=== PATIENT | female | born 1945 | race Caucasian/White ===

== ENCOUNTER 2018-09-18 22:03 | Emergency (ER) | payer MEDICARE, OTHER, SELFPAY ==
[2018-09-18 22:03] VITALS: BP 212/137; PULSE 86; RESP 20; TEMP 36.3; O2SAT 97; BMI 33.0
--- NOTE | 2018-09-18 22:41 | ED.DCSUM_ITS ---
- ER Visit Summary Date of Service: 09/18/18 Chief Complaint: [] Right lower abdominal pain History of Present Illness: The patient is a 73 F with right lower abdominal pain for the last 3 weeks on and off. Is been worse over the last 3 days and constant today. She describes an aching stabbing pain in her right lower abdomen. She still has her appendix but it does not hurt to push on this area. Denies nausea vomiting. She is having normal bowel movements. No home treatment. She had a remote kidney stone 40 years ago. Denies any other medical problems Physical Examination: [] Vital signs reviewed General: Well-nourished well-developed Head: Normocephalic atraumatic Eyes: Pupils equal round and reactive to light extraocular movements intact ENT: TMs clear no hemotympanum no trauma Neck: Nontender full range of motion Cardiovascular: Regular rate rhythm no murmurs normal S1-S2 Respiratory: No distress clear to auscultation bilaterally chest nontender Abdomen: Soft nontender nondistended normal bowel sounds no masses Back: Nontender no CVA tenderness Extremities: Nontender active range of motion ?4 extremities no trauma Skin: Normal color no trauma Neuro alert oriented cranial nerves II through XII intact normal strength sensation reflexes Test Results: [] Emergency Department Course and Treatment: [] Given IV fluids, morphine. Lab work and CT abdomen pelvis obtained. Lab work shows a chloride of 109. Normal liver function test CBC and lipase. Urinalysis shows no evidence of infection with 0 bacteria. Troponin negative. EKG shows sinus at 69. There was some very slight ST elevation in V2. T wave inversion inferiorly 3. That is unchanged from prior. CT abdomen pelvis shows a 2.8 x 2.3 cm right ovarian cyst. Ultrasound was done in this region to rule out torsion. There is no t orsion. There is a fibroid noted as well as a right simple cyst. Patient was given IV fluids and morphine. She did get nauseated after the morphine and was received a dose of Zofran which helped. At this time I think she is dealing with pain from this cyst. She will be referred to [facility]. She will use Tylenol as an outpatient. Blood pressures were elevated in the department likely secondary to her pain. Her most recent is 177/101. She will follow-up with her family doctor to have her blood pressures rechecked as an outpatient. Treatment Plan: [] Disposition: [] Impression: [] Right lower quadrant pain secondary to ovarian cyst Elevated blood pressure This note was generated with [employer] dictation software. It may contain incorrect words, spelling, and punctuation that were not noted in review of the chart prior to signing ED Disposition - Plan for ED Patient: Chief Complaint: Abd Pain Referrals: Jeny Irizarry MD [Primary Care Provider] -
[2018-09-18 22:49] LABS: Absolute Lymphocyte Count 1.22 X10^3/ul (0.83-4.51); Absolute Neutrophil Count 3.2 X10^3/uL (2.0-7.7); Basophil# 0.03 X10^3/uL; Basophil% 0.6 % (0-1); Eosinophil# 0.16 X10^3/uL; Eosinophils% 3.1 % (0-5); Hematocrit 43.6 % (37-47); Hemoglobin 14.2 g/dl (12.0-15.0); Lymphocyte # 1.22 X10^3/ul (4.0); Lymphocyte % 23.8 % (19-41); Mean Corp Hgb Conc 32.6 g/gl (32-36); Mean Corpuscular Volume 92.2 fL (81-99); Mean Platelet Vol. 9.2 fl (6.2-12.0); Monocyte# 0.52 X10^3/uL; Monocyte% 10.1 % (0-10); Neutrophil # 3.18 X10^3/uL (2.7-7.7); Platelet Count 273 K/mm3 (150-450); RBC Distribution Width CV 13.1 % (11.6-14.6); RBC Distribution Width SD 43.7 fl (35.1-43.9); Red Blood Count 4.73 M/mm3 (4.2-5.4); White Blood Count 5.1 K/mm3 (4.4-11.0)
[2018-09-18 22:50] LABS: POSITIVE COUNT NO; POSITIVE DIFFERENTIAL NO; POSITIVE MORPHOLOGY NO
--- NOTE | 2018-09-18 23:00 | CT_ITS ---
STUDY: CT ABDOMEN AND PELVIS WITHOUT CONTRAST REASON FOR EXAM: Female, 73 years old. Right-sided abdominal pain RADIATION DOSAGE (If Supplied By Facility): CTDIvol = ( 14.40 ) mGy, DLP = ( 644.00 ) mGycm TECHNIQUE: Transaxial images were obtained from the dome of the diaphragm to the symphysis pubis without oral contrast, and without intravenous contrast. Sagittal and coronal images were reconstructed. Individualized dose optimization techniques were used for this CT. COMPARISON: None. FINDINGS: The visualized lung bases are unremarkable. The visualized portions of the heart are within normal limits. Small hiatal hernia. Normal liver. There are surgical clips in the gallbladder fossa consistent with a prior cholecystectomy. There are multiple benign calcified granulomata of the spleen. Normal pancreas. Normal bilateral adrenal glands. Normal right kidney. Normal left kidney. Normal visualized stomach. 3.1 cm duodenal diverticulum. There are multiple colonic diverticula consistent with diverticulosis. The appendix is visualized and appears normal. Normal abdominal aorta. Normal inferior vena cava. Normal retroperitoneum. Normal urinary bladder. 2.8 x 2.3 cm right ovary cyst. Normal abdominal wall. Remote deformity of the right inferior pubic ramus. CT/Abdomen/Pelvis without Cont IMPRESSION: No evidence of acute intestinal pathology or acute obstructive uropathy. 2.8 x 2.3 cm right ovary cyst. Duodenal diverticulum. Small hiatal hernia. Electronically Signed: Delio Tirado MD at 23:15 EST Tel , Service support ,
[2018-09-18 23:08] LABS: AST(SGOT) 16 U/L (15-37); Alanine Aminotransfer ALT/SGPT 17 U/L (13-56); Albumin, Serum 3.6 g/dL (3.2-5.0); Alkaline Phosphatase 91 U/L (45-117); Anion Gap 10 (5-15); BUN 12 mg/dL (7-18); BUN/Creat Ratio 12.4 RATIO (10-20); Bilirubin, Direct 0.11 mg/dL (0.00-0.30); Calcium,Total 8.6 mg/dL (8.5-10.1); Chloride 109 mmol/L (98-107); Creatinine, Serum 0.97 mg/dL (0.55-1.02); EST Glomerular Filtration Rate 60 mL/min (>60); Est Glom Filt Rate - Afr Amer 72 mL/min (>60); Estimated Creatinine Clearance 39.56 ml/min; Globulin 3.7 g/dL (2.2-4.2); Glucose 96 mg/dL (74-106); Lipase 100 U/L (73-393); Protein, Total 7.3 g/dL (6.4-8.2); Sodium Level 143 mmol/L (136-145)
[2018-09-18] MEDS: 0.9% Normal Saline 1,000 ML 1000 ML IV (23:20)
[2018-09-18] MEDS: Morphine 4 MG/ML Syringe IV (23:20)
[2018-09-18 23:24] VITALS: BP 237/117; PULSE 72; RESP 16
[2018-09-18 23:32] LABS: Bacteria 0 SEEN /hpf (None Seen); Mucous, Urine 0 SEEN /hpf (<or=2+)
[2018-09-18 23:37] LABS: Color, Urine Yellow (Yellow); Glucose, Dipstick Normal (Normal); Ketone-Dipstick 5 mg/dl (Negative); Leukocyte Esterase-Dipstick 500 /ul (Negative); Nitrite-Dipstick Negative (Negative); Occult Blood-Urine 10 /ul (Negative); Protein-Dipstick Negative (Negative); Specific Gravity, Urine 1.015 (1.002-1.030); Urine Bilirubin Dipstick Negative (Negative); Urine Clarity Sl. Cloudy (Clear); Urine Urobilinogen Normal (Normal); Urine pH 6.5 (5.0 - 8.0)
[2018-09-18] MEDS: Morphine 2 MG/ML Syringe IV (23:53)
[2018-09-18 23:55] VITALS: BP 200/106; PULSE 67; RESP 16
[2018-09-19] LABS: Amorphous Sediment 1+ URATE; Red Blood Cells-Urine 0-5 SEEN /hpf (0-5); Squamous Epithelial Cells - UA 0-5 SEEN /hpf (5-10); White Blood Cells 25-50 SEEN /hpf (0-5)
--- NOTE | 2018-09-19 00:21 | US_ITS ---
STUDY: ULTRASOUND TRANSVAGINAL CLINICAL: Female, 73 years old. Right pelvic pain, evaluate for torsion TECHNIQUE: Transvaginal COMPARISON: CT 09/18/2018 FINDINGS: The uterus is normal in size measuring 6.3 x 3.7 x 3.1 cm. Endometrial stripe is 9 mm thick and is hyperechoic. Posterior myometrial fibroid measuring 16 x 15 x 13 mm. Nabothian cyst in the cervix. Left ovary is not seen. Right ovary measures 3.8 x 2.4 x 2.1 cm. It contains a 3.6 x 2.4 x 2.1 cm simple cyst. Normal right ovary vascularity. No free pelvic fluid. US/Transvaginal Non- IMPRESSION: No evidence of right ovary torsion. Right ovary cyst measuring up to 3.6 centimeters. Left ovary is not seen. Posterior uterine fibroid measuring up to 16 mm. Electronically Signed: Delio Tirado MD at 2:53 EST Tel , Service support ,
[2018-09-19 00:31] VITALS: BP 177/101; PULSE 78; RESP 14
--- NOTE | 2018-09-19 00:49 | EKG12_ITS ---
Test Reason : CHEST PRESSURE Blood Pressure : / mmHG Vent. Rate : 069 BPM Atrial Rate : 069 BPM P-R Int : 162 ms QRS Dur : 076 ms QT Int : 414 ms P-R-T Axes : 059 -11 -04 degrees QTc Int : 443 ms Normal sinus rhythm Septal infarct , age undetermined Inferior infarct , age undetermined Abnormal ECG Confirmed by SAMSON WOODRUFF, DAWN ([id number]), subeditor MARY ANNE DE JESUS ([id number]) on 09/23/2018 4:57:59 PM Referred By: PASTOR Confirmed By:DAWN DAVIES MD
[2018-09-19] MEDS: Ondansetron 4 MG/2 ML Vial IV (00:55)
--- NOTE | 2018-09-19 03:05 | ED.DEP ---
ED Disposition - Plan for ED Patient: Disposition: Home or Assisted Living Chief Complaint: Abd Pain Instructions: ED Cyst Ovarian, Controlling High Blood Pressure Referrals: Jeny Irizarry MD [Primary Care Provider] - More Ceballos [STAFF PHYSICIAN] -
[2018-09-19 03:20] VITALS: BP 200/120; PULSE 93; RESP 18; O2SAT 96
== END 2018-09-19 03:34 | disposition home or self-care (01) ==
PROVIDERS: Emergency Provider Emergency Medicine; Family Provider Family Medicine; PCP Family Medicine
DX: N83.201 Unspecified ovarian cyst, right side (principal); R10.31 Right lower quadrant pain; R03.0 Elevated blood-pressure reading, without diagnosis of hypertension; D25.9 Leiomyoma of uterus, unspecified; Z87.442 Personal history of urinary calculi; Z90.49 Acquired absence of other specified parts of digestive tract
CPT/HCPCS: 74176; 76830; 80048; 80076; 81001; 83690; 84484; 85025; 93005; 93976; 96374; 96375; 99284; J7030; A4216; J2405

== ENCOUNTER 2018-10-02 05:44 | Day surgery (SDC) | payer MEDICARE, OTHER, SELFPAY ==
[2018-09-23 08:33] VITALS: BMI 33.0
[2018-09-29 11:25] VITALS: BMI 33.0
--- NOTE | 2018-10-02 05:38 | PCM.HPOB.BLA ---
- Problem List (1) Complex ovarian cyst Status: Acute (2) Endometrial thickening on ultrasound Status: Acute History and Physical Date of Admission: 10/02/18 Vital Signs 09/29/18 Body Mass Index (BMI) 33.0 09/29/18 Blood Pressure 122/86 H Intake Visit Reasons: Pre-op/SOAP Chief Complaint: pre-op appt Payroll Tax Specialist Required: No Is patient in pain?: No Allergies No Known Allergies Allergy (Verified 09/29/18 10:32) Medications cyclobenzaprine 5 mg tablet 5 mg PO TID PRN #30 tab 09/23/18 [Rx Confirmed 09/29/18] Gabapentin [Neurontin] 100 mg PO TIDCM 09/26/18 [History Confirmed 09/29/18] Oxycodone HCl 5 mg PO 4X/DAY 09/26/18 [History Confirmed 09/29/18] Valacyclovir HCl [Valtrex] 1,000 mg PO TID 09/26/18 [History Confirmed 09/29/18] Is last menstrual period known: No Post menopausal: Yes Patient : No : No PFSH Surgical History Cholecystectomy planned (Acute) S/P thyroid biopsy (Acute) Family History Mother Diabetes Brother Diabetes Heart disease Social History number of children: 3 current occupational status: retired current occupation: Secretarial Smoking Status: Never smoker alcohol intake: current alcohol intake frequency: 0-2 drinks per day Alcohol type: wine substance use type: does not use seatbelt use: always do you feel safe at home: Yes additional social history: Angelo Padilla HPI Pre-op/SOAP: Details: GRICELDA MORSE is a 73 year old who presents for preoperative appointment. she has an ovarian cyst and is having pelvic pain, and a thickened lining. she is going to have a d and c hysteroscopy and laparoscopic BSO. Pregancy History 3 Elective abortions Hx Para 3 Spontaneous abortions Hx # Term Pregnancies 3 Ectopic pregnancies Hx # Pregnancies Multiple births # of living children 3 Past Pregnancies Del. Date Name GA/Weeks Outcome Route Bth Weight Infant Gen Labor Lgth Anesthesia Del Locatn Provider FOB Unknown Sarah 1964 Unknown Adam 1966 Unknown Fidelina 1972 ROS Const Constitutional: Denies poor appetite, headache(s), fever(s), increased appetite, weight gain, weight loss or fatigue Cardio Card: Denies chest pain Resp Resp: Denies dyspnea or cough GI GI: Reports as per HPI; denies vomiting, nausea, abdominal pain or constipation : Reports as per HPI; denies urinary urgency, vaginal discharge, urinary frequency, vaginal itching, vaginal odor, vaginal dryness, urinary incontinence, urinary hesitancy, difficulty urinating or painful urination Exam Const General: cooperative, healthy appearing, comfortable, no acute distress, well developed Nutritional Appearance: average body habitus Orientation: alert [facility] Head: normal to inspection, normocephalic Neck Neck: normal visual inspection, trachea midline Thyroid: thyroid normal Resp Effort & Inspection: normal respiratory effort GI Inspection: normal to inspection, non-distended Palpation: soft, no hepatosplenomegaly Skin General: no rashes or lesions noted Assessment & Plan Problems 1. Complex ovarian cyst N83.299 2. Endometrial thickening on ultrasound R93.89 Plan discussed surgical risks including risks of anesthesia, infection, bleeding, injury to bowel, bladder or blood vessels, and patient wishes to proceed with surgery. Coding Level of Care Code No Charge Diagnoses Complex ovarian cyst N83.299 Endometrial thickening on ultrasound R93.89 UPDATE- I have seen the patient and performed any clinically relevant updates to the history and physical exam. Charline Maynard MD
[2018-10-02 06:27] LABS: Hematocrit 41.3 % (37-47); Hemoglobin 13.4 g/dl (12.0-15.0); Mean Corp Hgb Conc 32.4 g/gl (32-36); Mean Corpuscular Hgb 29.5 pg (27.0-32.0); Mean Corpuscular Volume 90.8 fL (81-99); Mean Platelet Vol. 9.6 fl (6.2-12.0); Platelet Count 250 K/mm3 (150-450); RBC Distribution Width CV 12.9 % (11.6-14.6); RBC Distribution Width SD 42.3 fl (35.1-43.9); Red Blood Count 4.55 M/mm3 (4.2-5.4); White Blood Count 4.2 K/mm3 (4.4-11.0)
[2018-10-02 06:29] VITALS: BP 174/96; PULSE 88; RESP 16; TEMP 37.3; O2SAT 95; BMI 30.7
[2018-10-02 06:29] LABS: Scan Indicated on CBC? Y/N NO
[2018-10-02 07:22] LABS: Thyroid Stim Hormone (TSH) 2.32 uIU/mL (0.358-3.74)
--- NOTE | 2018-10-02 07:30 | FLU_PTH ---
PATIENT: GRICELDA SANCHEZ LOC: [facility] [place] U#:[id number] AGE/SX: 73/F ROOM: RE10/02/[address]: Dr. Charline Maynard MD : 1945 BED: DIS: 10/02/2018 SPEC #: [id number] RECD: 10/02/18 10:16 STATUS: ANY ROSA #: [id number] KIRSTEN: 10/02/18 07:[address]: Charline Maynard DEPT: CYTOLOGY RECD BY: Kushal Bennett ENTERED: 10/02/18 11:10 SP TYPE: Fluid OTHR DR: Dr. Jeny Irizarry MD Tissues: Pelvis, NOS Procedures: Pap Stain (control) Special Stain Group II Surgery Specimen Level IV Cell Block Cytospin Fluid HEADER OPERATION: Laparoscopic salpingo-oophorectomy, lysis of adhesions PRE-OP DIAGNOSIS: Complex ovarian cyst; endometrial thickening on ultrasound TISSUE SUBMITTED: Pelvic washings for cytology DIAGNOSIS CYTOLOGY Pelvic washings for cytology (cytospin and cell block): Negative for malignant cells. AM:thony 10/03/18 COMMENT Please make reference to corresponding surgical case ([id number]). CYTOLOGY STUDY Slides are reviewed. CYTOLOGY GROSS Received is 25 ml of clear colorless fluid labeled with the patient's name and and designated per the requisition as pelvic washings. Submitted for cytology preparation including cell block. / 10/02/18 TC:5 CPT: 83580, 44533
--- NOTE | 2018-10-02 07:30 | FALS_PTH ---
PATIENT: GRICELDA SANCHEZ LOC: [facility] [place] U#:[id number] AGE/SX: 73/F ROOM: RE10/02/[address]: Dr. Charline Maynard MD : 1945 BED: DIS: 10/02/2018 SPEC #: [id number] RECD: 10/02/18 10:16 STATUS: ANY ROSA #: [id number] KIRSTEN: 10/02/18 07:[address]: Charline Maynard DEPT: SURGICAL PATHOLOGY RECD BY: Kushal Bennett ENTERED: 10/02/18 11:12 SP TYPE: FALL TUBES OTHR DR: Dr. Jeny Irizarry MD Tissues: A - Fallopian tube B - Endometrium, NOS Procedures: Surgery Specimen Level IV HEADER OPERATION: Laparoscopic salpingo-oophorectomy, lysis of adhesions PRE-OP DIAGNOSIS: Complex ovarian cyst; endometrial thickening on ultrasound TISSUE SUBMITTED: A - Bilateral fallopian tubes and ovaries, B - Endometrial curettings MICROSCOPIC DIAGNOSIS A. Bilateral fallopian tubes and ovaries, salpingo-oophorectomy: Right and left ovaries with corpora albicantia and benign inclusion cysts. One fallopian tube with no significant pathologic change, complete cross-section. The other fallopian tube with benign paratubal cyst. B. Endometrium, curettings: Rare strips of benign squamous mucosa and mucous. See comment. AM:thony 10/03/18 COMMENT B. Glandular epithelium is not represented in the biopsy. Clinical correlation is suggested. MICROSCOPIC DESCRIPTION Slides are reviewed. GROSS DESCRIPTION A - Received is one container labeled with the patient's name and designated bilateral fallopian tubes and ovaries. The specimen consists of a pink-maldonado ovary measuring 3 x 1.5 x 1 cm. Adjacent to this is a portion of fallopian tube measuring 2.5 x 0.5 cm. No distinct tubo-ovarian adhesions are identified. Serial sections of the ovary do not reveal mass lesions. The fallopian tube has a normal fimbrial end. No mass lesions are identified. [employer] Teacher sections of this fallopian tube and ovary are submitted in cassette 1. The other ovary is similar in appearance to this ovary and measures 2.5 x 2 x 1.5 cm. Serial sections of the ovary do not reveal mass lesions. The fallopian tube measures 3 cm in length and appearance to have cystic dilatation. This cystic lesion measures 3.5 x 3 cm. The cyst contains clear fluid. [employer] Teacher sections are submitted as follows: 1 - one ovary and fallopian tube, 2 & 3 - the other ovary with cystically dilated fallopian tube. B - Received in fixative is one container labeled with the patient's name and designated endometrial curettings. The specimen consists of light maldonado mucoid material aggregating to 1 x 1 x <0.1 cm. The specimen is totally submitted in one cassette. It is doubtful if tissue will survive processing. / AM:thony 10/02/18 TC:4 CPT: 83823 x3
--- NOTE | 2018-10-02 07:40 | OP.PCM_ITS ---
Problem List (1) Complex ovarian cyst Status: Acute (2) Endometrial thickening on ultrasound Status: Acute Report of Operation Date of Procedure: 10/02/18 Pre-Operative Diagnosis: complex ovarian cyst, pain, thickened endometrium Post-Operative Diagnosis: Same plus severe omental to anterior abdominal wall and omental to anterior abdominal wall scar tissue Surgery/Procedure Performed:: laparoscopic bso d and c hysteroscopy lysis of adhesion cytologic washings Description of Surgical Findings:: Extensive small bowel to anterior abdominal wall adhesion in the right side of the abdomen particularly right mid and right upper quadrant. Left sigmoid to the pelvic wall adhesions. Complex cystic right ovary insurance salesman: Anais Hu Type of Anesthesia:: General Special Medications: dary Specimen's removed: emc bilateral tubes and ovaries Drains: singh Estimated Blood Loss (mL): 25 Fluids Replaced: crystalloid Description of Procedure: Patient was taken to the operating room and placed under general anesthesia. Patient was prepped and draped in normal sterile fashion in the dorsal lithotomy position. Uterine manipulator was placed inside the uterus after sounding to 7 cm and attention paid to the abdominal wall. This attempted to insert a varies needle through a 12 mm umbilical port incision and I was unable to get the c orrect space and therefore went in directly via the Carrizales technique. A 12 mm port was placed directly after entering the abdomen and abdomen is well visualized. Severe right upper quadrant and right mid abdomen adhesions were seen omental to anterior abdominal wall and small bowel to anterior abdominal wall adhesions due to her previous cholecystectomy. There is also some left sigmoid to left pelvic sidewall adhesions. Using the [place] LigaSure device the bilateral salpingo-oophorectomy was performed after collecting cytologic washings. The left ovary was noted to be within normal limits but the right ovary was noted to be complex cystic and mildly enlarged. Both ovaries were removed intact placed inside a bag and removed through the umbilical port incision. Lysis of adhesions was then performed which took approximately 30-40 minutes. Using the [place] and laparoscopic scissors the scar tissue was dissected carefully between the small bowel and the anterior abdominal wall. There is no to be thinning of the posterior rectus sheath in the right portion of the abdomen. The liver appeared within normal limits. After dissecting down there was still good integrity to the bowel and surrounding tissues. Dary was placed over the areas and excellent hemostasis was noted. The umbilical port was closed directly using the Nabil Cheema using a 0 Vicryl suture. All port sites were removed from the abdomen and the skin incisions were posed with 3-0 Monocryl. Uterine manipulator was then removed and the cervix dilated to allow passage of a 5 mm hysteroscope. Lining was well visualized and noted be significantly atrophic with no normality seen. Curettage was performed with a very scant amount of tissue was removed due to the severe atrophy of the uterine lining. All instruments removed from the abdomen and vagina and patient was awoken taken recovery in stable condition. Grafts/Implants Used: none - Complications none - Admit VTE Documentation VTE Present on Admission: No
--- NOTE | 2018-10-02 07:42 | DCINST_ITS ---
Discharge Diet: No Restrictions - Increase fluid intake for the next 48 hours. Discharge Activity: Return to Normal Activity, May Drive - when you are no longer taking narcotic pain medications., May Shower, May Take a Tub Bath - in 7 days Additional Activity Instructions:: Ambulate often the next week after surgery. Nothing in the vagina for 5 days. Call your doctor if your incision/area has: Continuous Slow Oozing, Sudden Increased Bleeding, Increased Pain/ Swelling, Increased Redness, Foul Smelling Discharge Call your doctor if you observe: Fever of 101 or Higher Allergies/Adverse Reactions: Allergies No Known Allergies Allergy (Verified 09/29/18 10:32) Medications to take at Discharge cyclobenzaprine 5 mg tablet 5 mg PO TID PRN #30 tab 09/23/18 Gabapentin [Neurontin] 100 mg PO TIDCM 09/26/18 Oxycodone HCl 5 mg PO 4X/DAY 09/26/18 Valacyclovir HCl [Valtrex] 1,000 mg PO TID 09/26/18 Naproxen [Naprosyn] 250 - 500 mg PO Q8H PRN PRN #30 tablet 10/02/18 The following prescriptions were given: Naproxen [Naprosyn] 250 - 500 mg PO Q8H PRN PRN #30 tablet PRN Reason: MILD PAIN Orders to be completed after discharge: Thyroid Stim Hormone (TSH) Time Frame: 09/26/18, Location: Laboratory Primary Care Physician: Jeny Irizarry MD [Primary Care Provider] - Test Results: Test results from this visit will be discussed in further detail at your follow- up appointment, if applicable. Please Follow Up With: Charline Maynard MD - [phone]
[2018-10-02] MEDS: Bupivacaine 0.25% 30 ML Vial (08:08)
[2018-10-02] MEDS: Lubricating Jelly 60 GM Tube 30 GM TOPICAL (08:50)
[2018-10-02 09:14] VITALS: BP 173/99; BP 174/96; PULSE 104; RESP 16; TEMP 36.2; O2SAT 92
[2018-10-02 09:15] VITALS: BP 162/87; BP 174/96; PULSE 105; RESP 16; O2SAT 92
[2018-10-02 09:29] VITALS: BP 141/84; BP 174/96; PULSE 81; RESP 16; O2SAT 92
[2018-10-02 09:38] VITALS: BP 144/89; BP 174/96; PULSE 76; RESP 16; TEMP 36.6; O2SAT 92
[2018-10-02 12:05] VITALS: BP 157/95; BP 174/96; PULSE 84; RESP 16; TEMP 36.2; O2SAT 98
== END 2018-10-02 12:06 | disposition home or self-care (01) ==
LOC: SDC 05:45 → AC 05:45
PROVIDERS: Anesthesiology; Family Provider Family Medicine; PCP Family Medicine; Referring Provider Obstetrics & Gynecology; Visit Provider Obstetrics & Gynecology
PROC: (CPT 58558; principal; 2018-10-02 07:15)
PROC: 0UB98ZZ Excision of Uterus, Via Natural or Artificial Opening Endoscopic (ICD-10-PCS; CPT 58558; 2018-10-02 07:15)
DX: N83.292 Other ovarian cyst, left side (principal); N83.291 Other ovarian cyst, right side; N83.8 Other noninflammatory disorders of ovary, fallopian tube and broad ligament; R93.89 Abnormal findings on diagnostic imaging of other specified body structures; K66.0 Peritoneal adhesions (postprocedural) (postinfection); K21.9 Gastro-esophageal reflux disease without esophagitis; I10 Essential (primary) hypertension; Z79.899 Other long term (current) drug therapy
CPT/HCPCS: 00840; 58558; 58661; 36415; 84443; 85027; 86850; 86900; 88108; 88302; 88305; 88313; J7120; J2405

== ENCOUNTER → 2018-10-13 11:16 | Outpatient (CLI) | payer MEDICARE, OTHER, SELFPAY ==
[2018-10-02 06:29] VITALS: BMI 30.7
--- NOTE | 2018-10-13 11:22 | RAD_ITS ---
STUDY: X-RAY - RIGHT TIBIA AND FIBULA REASON FOR EXAM: Fall. TECHNIQUE: 2 view(s) of the tibia and fibula were obtained. COMPARISON: None. FINDINGS: Normal visualized tibia. There is very mild displaced oblique fracture of the distal fibular diaphysis. There is soft tissue swelling at the lateral aspect of the ankle. RAD/Tibia & Fibula 2 Views IMPRESSION: Distal fibular diaphyseal fracture. Electronically Signed: Jose Morton MD at 11:58 EST Tel , Service support ,
--- NOTE | 2018-10-13 11:22 | RAD_ITS ---
STUDY: X-RAY - RIGHT ANKLE REASON FOR EXAM: Fall. TECHNIQUE: 3 view(s) of the ankle. COMPARISON: None. FINDINGS: There is a very mildly displaced oblique fracture of the distal fibular diaphysis. Normal medial and lateral malleoli. Normal tibiotalar articulation and ankle mortise. Normal visualized talus and calcaneus. The visualized subtalar, talonavicular, calcaneocuboid and tarsal articulations are normal. There is lateral soft tissue swelling. RAD/Ankle min 3 Views IMPRESSION: Distal fibular fracture. Electronically Signed: Jose Morton MD at 11:59 EST Tel , Service support ,
== END ==
PROVIDERS: Family Provider Family Medicine; PCP Family Medicine; Referring Provider Nurse Practitioner Family; Visit Provider Nurse Practitioner Family
DX: S99.911A Unspecified injury of right ankle, initial encounter (principal)
CPT/HCPCS: 73590; 73610

== ENCOUNTER → 2018-10-14 11:57 | Outpatient (CLI) | payer MEDICARE, OTHER, SELFPAY ==
[2018-10-14 08:19] VITALS: BMI 30.7
--- NOTE | 2018-10-14 11:59 | RAD_ITS ---
STUDY: X-RAY - RIGHT ANKLE REASON FOR EXAM: Female, 73 years old. Injury. TECHNIQUE: 3 view(s) of the ankle. COMPARISON: None. FINDINGS: Distal fibular diaphyseal fracture, mild subluxation, cortical step-off approximately 5.4 mm, oblique orientation into the margin of the metaphysis. Prominent lateral ankle soft tissue swelling. Tibia intact. Normal tibiotalar articulation with normal dome of the talus. Proximal foot intact. RAD/Ankle min 3 Views IMPRESSION: Distal fibular fracture. Electronically Signed: Yeyo Ram MD at 12:16 EST Tel , Service support ,
== END ==
PROVIDERS: Family Provider Family Medicine; PCP Family Medicine; Referring Provider Orthopaedic Surgery; Visit Provider Orthopaedic Surgery
DX: S82.831A Other fracture of upper and lower end of right fibula, initial encounter for closed fracture (principal)
CPT/HCPCS: 73610

== ENCOUNTER → 2018-10-20 10:55 | Outpatient (CLI) | payer MEDICARE, OTHER, SELFPAY ==
[2018-10-16 09:22] VITALS: BMI 30.7
--- NOTE | 2018-10-20 11:19 | RAD_ITS ---
STUDY: X-RAY - RIGHT ANKLE REASON FOR EXAM: Female, 73 years old. Injury. TECHNIQUE: 3 view(s) of the ankle. COMPARISON: None. FINDINGS: Normal visualized distal tibia. There is a slightly displaced oblique fracture of the distal fibula just above the lateral malleolus. No angulation. Normal tibiotalar articulation and ankle mortise. Normal visualized talus and calcaneus. The visualized subtalar, talonavicular, calcaneocuboid and tarsal articulations are normal. The soft tissue structures are unremarkable. RAD/Ankle min 3 Views IMPRESSION: There is a slightly displaced oblique fracture of the distal fibula just above the lateral malleolus. No angulation. Electronically Signed: Doyle Khalil MD at 17:07 EST , Service support ,
== END ==
PROVIDERS: Family Provider Family Medicine; PCP Family Medicine; Referring Provider Orthopaedic Surgery; Visit Provider Orthopaedic Surgery
DX: S82.401A Unspecified fracture of shaft of right fibula, initial encounter for closed fracture (principal)
CPT/HCPCS: 73610

== ENCOUNTER 2018-10-21 05:48 | Day surgery (SDC) | payer MEDICARE, OTHER, SELFPAY ==
[2018-10-14 08:19] VITALS: BMI 30.7
[2018-10-16 09:22] VITALS: BMI 30.7
[2018-10-21 06:51] VITALS: BP 177/100; PULSE 84; RESP 16; TEMP 36.8; O2SAT 99; BMI 30.5
[2018-10-21] MEDS: Cefazolin 2 GM in 0.9% Normal Saline 100 ML IV (07:29)
--- NOTE | 2018-10-21 07:30 | RAD_ITS ---
STUDY: X-RAY - RIGHT ANKLE REASON FOR EXAM: Female, 73 years old. ORIF of the distal fibular fracture. TECHNIQUE: 2 intraoperative view(s) of the ankle. COMPARISON: Comparison is made with prior examination dated October 20, 2018. FINDINGS: The patient is status post open reduction and internal fixation of the distal fibular fracture. There is good alignment. Normal tibiotalar articulation and ankle mortise. Normal visualized talus and calcaneus. The visualized subtalar, talonavicular, calcaneocuboid and tarsal articulations are normal. Postoperative soft tissue changes. RAD/Ankle 2 Views IMPRESSION: Status post open reduction and dilatation of the distal fibular fracture. There is good alignment. Electronically Signed: Giovani King MD at 9:24 EST , Service support ,
[2018-10-21 09:17] VITALS: BP 144/86; BP 177/100; PULSE 73; RESP 18; TEMP 36.1; O2SAT 96
--- NOTE | 2018-10-21 09:25 | PCM.DC.ORTHO ---
Discharge Diet: No Restrictions May shower in (days): 2 - weeks Ice area for (Minutes): 15 Keep extremity elevated above heart level: Operative Extremity Additional Activity Instructions:: ice and elevate above heart strict x 1 week. may wiggle toes. no weight bearing. keep splint on clean and dry. Call your doctor if your incision/area has: Continuous Slow Oozing Call your doctor if you observe: Fever of 101 or Higher, Uncontrolled pain Allergies/Adverse Reactions: Allergies No Known Allergies Allergy (Verified 10/21/18 06:49) Medications to take at Discharge Acetaminophen [Tylenol Extra Strength] 1,000 mg PO BID 10/16/18 Acetaminophen/Diphenhydramine [Tylenol Pm Ex-Strength Caplet] 1 ea PO QHS 10/16/18 Hydrocodone Bitart/Apap 5-325 [[place] 5MG-325MG] 1 - 2 tablet PO Q4H PRN PRN 7 Days #60 tablet 10/21/18 The following prescriptions were given: Hydrocodone Bitart/Apap 5-325 [[place] 5MG-325MG] 1 - 2 tablet PO Q4H PRN PRN 7 Days #60 tablet PRN Reason: Pain Primary Care Physician: Jeny Irizarry MD [Primary Care Provider] - Test Results: Test results from this visit will be discussed in further detail at your follow-up appointment, if applicable. Please Follow Up With: Michael Pineda DO - 1 week
--- NOTE | 2018-10-21 09:28 | DCINST_ITS ---
Discharge Diet: No Restrictions May shower in (days): 2 - weeks Ice area for (Minutes): 15 Keep extremity elevated above heart level: Operative Extremity Additional Activity Instructions:: ice and elevate above heart strict x 1 week. may wiggle toes. no weight bearing. keep splint on clean and dry. Call your doctor if your incision/area has: Continuous Slow Oozing Call your doctor if you observe: Fever of 101 or Higher, Uncontrolled pain Allergies/Adverse Reactions: Allergies No Known Allergies Allergy (Verified 10/21/18 06:49) Medications to take at Discharge Acetaminophen [Tylenol Extra Strength] 1,000 mg PO BID 10/16/18 Acetaminophen/Diphenhydramine [Tylenol Pm Ex-Strength Caplet] 1 ea PO QHS 10/16/18 Hydrocodone Bitart/Apap 5-325 [Holden 5MG-325MG] 1 - 2 tablet PO Q4H PRN PRN 7 Days #60 tablet 10/21/18 The following prescriptions were given: Hydrocodone Bitart/Apap 5-325 [Holden 5MG-325MG] 1 - 2 tablet PO Q4H PRN PRN 7 Days #60 tablet PRN Reason: Pain Primary Care Physician: Jeny Irizarry MD [Primary Care Provider] - Test Results: Test results from this visit will be discussed in further detail at your follow- up appointment, if applicable. Please Follow Up With: Michael Pineda DO - 1 week
--- NOTE | 2018-10-21 09:28 | PCM.OPRPT ---
Report of Operation Date of Procedure: 10/21/18 Pre-Operative Diagnosis: Displaced right lateral malleolus fracture Casiano B Post-Operative Diagnosis: Same Surgery/Procedure Performed:: ORIF right lateral malleolus Description of Surgical Findings:: Indication for procedure: This is a 73-year-old female who sustained a slip and fall injuring her right ankle sustaining a displaced lateral malleolus fracture. There was no medial sided injury however due to the amount of displacement we did discuss risks benefits alternatives of surgical fixation with plate and screws including risk for bleeding infection nerve artery tissue damage need for further surgery to remove the plate continued pain stiffness postoperative restrictions and course complications. Procedure: The patient was met in the preoperative holding area the operative extremity was identified by both the patient and physician and was marked. Patient was met by anesthesia and brought back to the operating room on a wheeled cart and transferred to the operating table in the supine position. Patient was given a spinal by anesthesia and then placed a bump on her operative hip a well-padded tourniquet on the operative thigh and a blanket bump underneath the ankle she was prepped and draped in the usual sterile fashion. A timeout was called to ensure the proper patient procedure and extremity were being contemplated. An Esmarch was used to exsanguinate the extremity and the tourniquet was inflated to 300 mmHg. A 15 blade scalpel was used to make a lateral incision over the fibula fluoroscopy was used to visualize the fracture site and the joint line. Dissection was carried down as a full-thickness flap distally to the bone proximally dissection was carried out to avoid injury to the superficial peroneal nerve which was found and mobilized. The fracture site was cleared of hematoma and [id number] reduction clamps were used to reduce the fracture. A one third tubular plate was then positioned over the fracture site and contoured with plate benders it was secured proximally with 3.5 bicortical screws and distally with 4 oh cancellus screws. The wound was thoroughly irrigated deep closure was performed with [id number] 2-0 Vicryl followed by 2-0 Vicryl subcutaneous stitches followed by 3-0 nylon vertical mattresses with benzoin and Steri-Strips placed between the stitches dressing was applied in the form of Xeroform 4 x 4 ABD web roll tourniquet was let down a well-padded posterior splint and stirrup splint were applied over a bulky Sosa type dressing with an Fam wrap she tolerated the procedure well all counts were correct at there is no intraoperative complications final fluoroscopic images were taken prior to closure and saved to the PACS system he will be nonweightbearing and she will follow-up in the office in 1 week senior business manager: None Type of Anesthesia:: Block,Regional, Spinal Estimated Blood Loss (mL): 5
[2018-10-21 09:30] VITALS: BP 152/94; BP 177/100; PULSE 70; RESP 18; O2SAT 98
--- NOTE | 2018-10-21 09:36 | OP.PCM_ITS ---
Report of Operation Date of Procedure: 10/21/18 Pre-Operative Diagnosis: Displaced right lateral malleolus fracture Casiano B Post-Operative Diagnosis: Same Surgery/Procedure Performed:: ORIF right lateral malleolus Description of Surgical Findings:: Indication for procedure: This is a 73-year-old female who sustained a slip and fall injuring her right ankle sustaining a displaced lateral malleolus fracture. There was no medial sided injury however due to the amount of displacement we did discuss risks benefits alternatives of surgical fixation with plate and screws including risk for bleeding infection nerve artery tissue damage need for further surgery to remove the plate continued pain stiffness postoperative restrictions and course complications. Procedure: The patient was met in the preoperative holding area the operative extremity was identified by both the patient and physician and was marked. Patient was met by anesthesia and brought back to the operating room on a wheeled cart and transferred to the operating table in the supine position. Patient was given a spinal by anesthesia and then placed a bump on her operative hip a well-padded tourniquet on the operative thigh and a blanket bump underneath the ankle she was prepped and draped in the usual sterile fashion. A timeout was called to ensure the proper patient procedure and extremity were being contemplated. An Esmarch was used to exsanguinate the extremity and the tourniquet was inflated to 300 mmHg. A 15 blade scalpel was used to make a lateral incision over the fibula fluoroscopy was used to visualize the fracture site and the joint line. Dissection was carried down as a full-thickness flap distally to the bone proximally dissection was carried out to avoid injury to the superficial peroneal nerve which was found and mobilized. The fracture site was cleared of hematoma and hydgu-fw-[id number] reduction clamps were used to reduce the fracture. A one third tubular plate was then positioned over the fracture site and contoured with plate benders it was secured proximally with 3.5 bicortical screws and distally with 4 oh cancellus screws. The wound was thoroughly irrigated deep closure was performed with [id number]-[id number] 2-0 Vicryl followed by 2-0 Vicryl subcutaneous stitches followed by 3-0 nylon vertical mattresses with benzoin and Steri-Strips placed between the stitches dressing was applied in the form of Xeroform 4 x 4 ABD web roll tourniquet was let down a well-padded posterior splint and stirrup splint were applied over a bulky Sosa type dressing with an Fam wrap she tolerated the procedure well all counts were correct at there is no intraoperative complications final fluoroscopic images were taken prior to closure and saved to the PACS system he will be nonweightbearing and she will follow-up in the office in 1 week firearms instructor: None Type of Anesthesia:: Block,Regional, Spinal Estimated Blood Loss (mL): 5
[2018-10-21 09:45] VITALS: BP 174/97; BP 177/100; PULSE 75; RESP 18; O2SAT 98
[2018-10-21 10:00] VITALS: BP 177/100; BP 178/101; PULSE 73; RESP 18; TEMP 36.4; O2SAT 97
[2018-10-21] MEDS: Cefazolin 1 GM/50 ML BAG IV (11:24)
[2018-10-21] MEDS: HYDROcodone Bitartrate/Apap 5/325 Tablet PO ×2 (13:00→13:33)
[2018-10-21 14:54] VITALS: BP 177/100; BP 180/97; PULSE 86; RESP 16; TEMP 36.5; O2SAT 95
== END 2018-10-21 14:57 | disposition home or self-care (01) ==
LOC: SDC 05:50 → AC 05:50
PROVIDERS: Family Provider Family Medicine; PCP Family Medicine; Referring Provider Orthopaedic Surgery; Visit Provider Orthopaedic Surgery
PROC: (CPT 27792; principal; 2018-10-21 07:10)
DX: S82.61XA Displaced fracture of lateral malleolus of right fibula, initial encounter for closed fracture (principal); W00.0XXA Fall on same level due to ice and snow, initial encounter; Y92.9 Unspecified place or not applicable; K21.9 Gastro-esophageal reflux disease without esophagitis; I10 Essential (primary) hypertension; Z79.899 Other long term (current) drug therapy
CPT/HCPCS: 01480; 27792; 73600; 76000; C1713; J7120; J2405

== ENCOUNTER → 2018-11-03 10:27 | Outpatient (CLI) | payer MEDICARE, OTHER, SELFPAY ==
[2018-10-27 08:03] VITALS: BMI 30.5
--- NOTE | 2018-11-03 10:30 | RAD_ITS ---
HISTORY: PAIN, FX F/U EXAM/TECHNIQUE: XR Ankle Min 3 Views: Right COMPARISON: 10/14/18 radiographs. FINDINGS: # of images incl. paperwork: 3 Interval ORIF distal fibular fracture with plate and screws, hardware intact. The fracture line remains faintly visible. Alignment anatomic. Mild lateral soft tissue swelling. No new fractures are evident. RAD/Ankle min 3 Views IMPRESSION: Interval ORIF distal fibular fracture with no evidence of complication. at 0346 Reported and signed by: Nish Burton MD Electronically Signed: Nish Burton, at 3:45 EST Tel , Service support ,
== END ==
PROVIDERS: Family Provider Family Medicine; PCP Family Medicine; Referring Provider Orthopaedic Surgery; Visit Provider Orthopaedic Surgery
DX: S82.891A Other fracture of right lower leg, initial encounter for closed fracture (principal); X58.XXXA Exposure to other specified factors, initial encounter; Y93.9 Activity, unspecified; Y92.9 Unspecified place or not applicable; Y99.9 Unspecified external cause status
CPT/HCPCS: 73610

== ENCOUNTER 2018-12-23 06:49 | Observation (INO) | payer MEDICARE, OTHER, SELFPAY ==
[2018-11-12 08:55] VITALS: BMI 30.5
[2018-12-23] VITALS (11 sets, daily range): BP systolic 125–247; BP diastolic 75–126; PULSE 58–78; RESP 12–14; TEMP 36.6–36.9; O2SAT 94–98; BMI 30.2
--- NOTE | 2018-12-23 07:04 | EKG12_ITS ---
Test Reason : CP Blood Pressure : / mmHG Vent. Rate : 074 BPM Atrial Rate : 074 BPM P-R Int : 152 ms QRS Dur : 064 ms QT Int : 380 ms P-R-T Axes : 064 -08 023 degrees QTc Int : 421 ms Normal sinus rhythm Septal infarct , age undetermined Inferior infarct ,age undetermined ST & T wave abnormality, consider lateral ischemia Abnormal ECG Confirmed by JAKE WOODRUFF, SATHISH ([id number]), health editor MARY ANNE DE JESUS ([id number]) on 12/24/2018 9:39:09 AM Referred By: JOSE DANIEL Confirmed By:SATHISH JOSEPH MD
--- NOTE | 2018-12-23 07:04 | RAD_ITS ---
HISTORY: CP EXAM:XR Chest 1 View portable COMPARISON: None FINDINGS: EKG leads in place. Normal heart size and normal lung volumes. No vascular congestion, pleural effusion, or acute pulmonary infiltration. Atherosclerotic thoracic aorta. No pneumothorax. The bony thorax appears intact. RAD/Chest 1 View (Portable) IMPRESSION: No acute cardiopulmonary disease. at 0724 Reported and signed by: Tc Pennington MD Electronically Signed: Tc Pennington, at 7:23 EDT Tel , Service support ,
--- NOTE | 2018-12-23 07:09 | ED.DCSUM_ITS ---
- ER Visit Summary Date of Service: 12/23/18 Chief Complaint: Chest pain History of Present Illness: The patient is a 73 F who states that she woke today at approximately 0400 hours. At that time she felt the urge to urinate and noticed immediately that she was sweaty and she had an aching on the left side of her chest. She denies any arm or leg symptoms other than some slight tingling in the left arm. There is no back pain. No neck pain. She felt nauseated. After using the bathroom she went to the living room and sat on a recliner. At 0600 hrs. she was still experiencing sensation so she called her daughters. At the time of examination at 0655 hours the patient states she no longer has aching sweating or nausea. Approximately 10 days ago the patient started lisinopril 20 mg for hypertension. She is supposed to start HCTZ today. Patient denies any known cardiac issues. There this year she underwent partial hysterectomy as well as ORIF of an ankle. Physical Examination: Blood pressure 227/119 heart rate 77 respirations are 12 pulse ox 98% on room air afebrile Gen: Well-nourished well-developed Head: Normocephalic atraumatic Eyes: Perrl EOMI ENT: TMs clear no rhinorrhea moist mucous membranes Neck: Supple no lymphadenopathy no JVD nontender CVS: Regular rate rhythm no murmurs normal S1-S2 Respiratory: No distress clear to auscultation bilaterally chest nontender Abdomen: Soft nontender nondistended normal bowel sounds no masses Back: Nontender Extremity: Nontender no edema Skin: Normal color no rash Neuro: alert orientated ?3 CN II-XII intact normal strength sensation reflexes gait cerebellar Psych: Anxious and occasionally tearful Test Results: EKG demonstrates a normal sinus rhythm at a rate of 74. Compared to September 19, 2018 there are T wave inversions laterally in V5 V6. The T waves are more prominent in the anterior leads. CBC BMP and troponin were negative. Emergency Department Course and Treatment: Patient received aspirin. Blood pressure was allowed to cycle several times. It was not coming down below 200/100 hydralazine was given. She is currently about 170/92. Repeat EKG does not show that T wave changes laterally at this time. She remains chest pain-inna e. Plan is admission Impression: 1. Chest pain 2. Hypertensive urgency This note was generated with [employer] dictation software. It may contain incorrect words, spelling, and punctuation that were not noted in review of the chart prior to signing ED Disposition - Plan for ED Patient: Referrals: Jeny Irizarry MD [Primary Care Provider] -
[2018-12-23 07:18] LABS: Absolute Lymphocyte Count 1.39 X10^3/ul (0.83-4.51); Absolute Neutrophil Count 3.2 X10^3/uL (2.0-7.7); Basophil# 0.02 X10^3/uL; Basophil% 0.4 % (0-1); Eosinophil# 0.16 X10^3/uL; Hematocrit 40.9 % (37-47); Hemoglobin 13.8 g/dl (12.0-15.0); Lymphocyte # 1.39 X10^3/ul (4.0); Lymphocyte % 26.1 % (19-41); Mean Corp Hgb Conc 33.7 g/gl (32-36); Mean Corpuscular Hgb 30.7 pg (27.0-32.0); Mean Corpuscular Volume 90.9 fL (81-99); Mean Platelet Vol. 9.6 fl (6.2-12.0); Monocyte# 0.59 X10^3/uL; Monocyte% 11.1 % (0-10); Neutrophil # 3.15 X10^3/uL (2.7-7.7); Platelet Count 286 K/mm3 (150-450); RBC Distribution Width CV 13.5 % (11.6-14.6); RBC Distribution Width SD 44.8 fl (35.1-43.9); White Blood Count 5.3 K/mm3 (4.4-11.0)
--- NOTE | 2018-12-23 07:22 | NURSING ---
CHEMISTRIES HEMOLIZED
[2018-12-23 07:23] LABS: POSITIVE COUNT NO; POSITIVE DIFFERENTIAL NO; POSITIVE MORPHOLOGY NO
[2018-12-23 07:52] LABS: Anion Gap 7 (5-15); BUN 11 mg/dL (7-18); BUN/Creat Ratio 13.2 RATIO (10-20); Calcium,Total 8.6 mg/dL (8.5-10.1); Chloride 112 mmol/L (98-107); Creatinine, Serum 0.83 mg/dL (0.55-1.02); EST Glomerular Filtration Rate 71 mL/min (>60); Est Glom Filt Rate - Afr Amer 86 mL/min (>60); Estimated Creatinine Clearance 48.46 ml/min; Glucose 99 mg/dL (74-106); Potassium 3.7 mmol/L (3.5-5.1); Sodium Level 142 mmol/L (136-145)
[2018-12-23] MEDS: hydrALAZINE 20 MG/ML Vial 10 MG IV (08:14)
--- NOTE | 2018-12-23 08:42 | EKG12_ITS ---
Test Reason : REPEAT Blood Pressure : / mmHG Vent. Rate : 063 BPM Atrial Rate : 063 BPM P-R Int : 158 ms QRS Dur : 062 ms QT Int : 412 ms P-R-T Axes : 014 -10 -02 degrees QTc Int : 421 ms Normal sinus rhythm Inferior infarct , age undetermined Abnormal ECG Confirmed by SAMSON WOODRUFF, DAWN ([id number]), film and video editor MARY ANNE DE JESUS ([id number]) on 12/25/2018 9:12:09 AM Referred By: MARISA Confirmed By:DAWN DAVIES MD
--- NOTE | 2018-12-23 08:58 | NURSING ---
DR DOUG CUNN[place]
--- NOTE | 2018-12-23 09:57 | EKG12_ITS ---
Test Reason : CP ADMISSION Blood Pressure : / mmHG Vent. Rate : 067 BPM Atrial Rate : 067 BPM P-R Int : 152 ms QRS Dur : 062 ms QT Int : 404 ms P-R-T Axes : 020 -09 004 degrees QTc Int : 426 ms Normal sinus rhythm Septal infarct , age undetermined Inferior infarct , age undetermined Abnormal ECG When compared with ECG of 23-DEC-2018 06:53, MANUAL COMPARISON REQUIRED, DATA IS UNCONFIRMED Confirmed by SAMSON WOODRUFF, DAWN ([id number]), proposal editor MARY ANNE DE JESUS ([id number]) on 12/25/2018 9:51:52 AM Referred By: DOUG Confirmed By:DAWN DAVIES MD
[2018-12-23] MEDS: Lisinopril 20 MG Tablet PO (10:30)
[2018-12-23] MEDS: hydroCHLOROthiazide 25 MG Tablet PO (10:30)
--- NOTE | 2018-12-23 14:16 | PCM.HP.STD ---
Problem List (1) Chest pain Status: Acute (2) Hypertensive urgency Status: Acute History of Present Illness Date of Admission: 12/23/18 Chief Complaint: chest pain The patient is a 73 year old F who awoke with midsternal chest pain. Occurred at 4 AM today. Patient was also feeling diaphoretic. Symptoms lasted a few hours and the patient presented to the emergency room. Patient was found to be hypertensive, with a blood pressure of 247/162. In the emergency room, patient received 10 mg of IV hydralazine and her blood pressure improved to 174/99. Patient was on lisinopril as outpatient was having difficulty control blood pressure and was to be started on HCTZ. Also in the emergency room, patient received aspirin. Currently she is chest pain-free. She has not had chest pain like this previously. [] Past Medical History Medical History: Medical History (Last Updated 12/23/18 @ 14:19 by Jong Pitts DO) HTN (hypertension) I10 Allergies No Known Allergies Allergy (Verified 11/12/18 08:54) Home Medications: Ambulatory Orders Medication Instructions Recorded Lisinopril 20 mg PO DAILY 12/23/18 Surgical History: Surgical History (Last Reviewed 12/23/18 @ 14:19 by Jong Pitts DO) Cholecystectomy planned S/P laparoscopy Onset Date: ~10/02/18 Z98.890 BSO Hysteroscopy Lysis of adhesion cytologic washings S/P thyroid biopsy Z98.890 h/o gallbladder removal Psychiatric History: No pertinent psych hx Lives: Spouse/ Significant Other Smoking Status: Never smoker Tobacco Use: Non-smoker Alcohol: Occasional - *Family History Maternal Family History: Family History (Last Reviewed 12/23/18 @ 14:20 by Jong Pitts DO) Mother Diabetes Brother Diabetes Heart disease Review of Systems Constitutional: Denies: Chills, Fever, Malaise, Weakness Eyes: Denies: Blurred vision, Double vision HEENT: Denies: Head Aches, Sinus Congestion, Sinus Drainage Cardiovascular: Reports: Chest Pain. Denies: Edema Respiratory: Denies: Cough, Shortness of breath at rest, Sputum production Gastrointestinal: Denies: Abdominal Pain, Nausea, Vomiting Genitourinary: Denies: Dysuria Musculoskeletal: Denies: Joint Pain, Joint Tenderness Skin: Denies: Rash, Wounds Neurological: Denies: Numbness, Tingling, Focal weakness Psychiatric: Denies: Anxiety, Depression Hematologic/ Lymphatic: Denies: Easy Bruising, Easy Bleeding, Hx of blood clot Comment: A 10 point review of systems were negative except as mentioned in the history of present illness and the other review of systems. VTE Information - Inpt Only VTE Present on Admission: No VTE Mechan Device Prophylaxis: None VTE Pharm Prophylaxis ordered?: Yes Patient Problems: Active and Suspected Problems (Last Reviewed 11/12/18 @ 08:55 by Ludivina Munoz) Chest pain (Acute) Hypertensive urgency (Acute) - Physical Exam General: Alert, Cooperative, No apparent distress HEENT: Atraumatic, Normocephalic Oral: Moist Mucosa, No Gingival or Mucosal Lesions/ Ulcerations Neck: No Nodes, Thyroid Normal Size and Texture Lungs: Clear to auscultation, Normal air movement, No rhonchi, No wheeze Cardiovascular: Regular rate, Regular Rhythm, Normal S1, Normal S2, No murmurs Abdomen: Bowel Sounds Present, Soft, Non Tender, Non-Distended, No Hepato-splenomegaly Extremities: No edema, No Calf Tenderness Skin: No rashes, No breakdown Musculoskeletal: No Tenderness to Palpation of Joints or Extremities, No Muscle Wasting Psych/Mental Status: Normal Affect, Appropriate Vital Signs Temp Pulse Resp BP Pulse Ox 36.7 C 69 14 174/99 H 97 12/23/18 09:40 12/23/18 11:00 12/23/18 09:40 12/23/18 09:40 12/23/18 09:40 Oxygen Flow Rate (L/min) 2 Oxygen Delivery Method Room Air Weight: 74.843 kg Body Mass Index (BMI) 30.2 Intake and Output for Last 24 Hours 12/21/18 12/22/18 12/23/18 23:59 23:59 23:59 Intake Total 360 / 360 Balance 360 / 360 Laboratory Tests Past 24 Hrs 12/23/18 12/23/18 12/23/18 06:55 06:55 07:30 WBC 5.3 RBC 4.50 Hgb 13.8 Hct 40.9 MCV 90.9 MCH 30.7 MCHC 33.7 RDW 13.5 RDW Differential 44.8 H Plt Count 286 MPV 9.6 Immature Gran % (Auto) 0.400 Neut % (Auto) 59.0 Lymph % (Auto) 26.1 Newton % (Auto) 11.1 H Eos % (Auto) 3.0 Baso % (Auto) 0.4 Absolute Neuts (auto) 3.2 Absolute Lymphs (auto) 1.39 Total Counted Not Reportable Sodium Cancelled 142 Potassium Cancelled 3.7 Chloride Cancelled 112 H Carbon Dioxide Cancelled 23.0 Anion Gap Cancelled 7 BUN Cancelled 11 Creatinine Cancelled 0.83 Estim Creat Clear Calc Cancelled 48.46 Est GFR (MDRD) Af Amer Cancelled 86 Est GFR (MDRD) Non-Af Cancelled 71 BUN/Creatinine Ratio Cancelled 13.2 Glucose Cancelled 99 Calcium Cancelled 8.6 Troponin I Cancelled < 0.015 12/23/18 12/23/18 10:55 13:30 WBC RBC Hgb Hct MCV MCH MCHC RDW RDW Differential Plt Count MPV Immature Gran % (Auto) Neut % (Auto) Lymph % (Auto) Newton % (Auto) Eos % (Auto) Baso % (Auto) Absolute Neuts (auto) Absolute Lymphs (auto) Total Counted Sodium Potassium Chloride Carbon Dioxide Anion Gap BUN Creatinine Estim Creat Clear Calc Est GFR (MDRD) Af Amer Est GFR (MDRD) Non-Af BUN/Creatinine Ratio Glucose Calcium Troponin I < 0.015 Pending Clinical Impression(s) from Imaging Studies Chest X-Ray 12/23/18 07:04 IMPRESSION: No acute cardiopulmonary disease. at 0724 Reported and signed by: Tc Pennington MD Electronically Signed: Tc Pennington, at 7:23 EDT Tel , Service support , EKG reviewed and showed normal sinus rhythm with no acute changes. Assessment/Plan All Active Problems (Last Reviewed 11/12/18 @ 08:55 by Ludivina Munoz) Chest pain (Acute) Hypertensive urgency (Acute) Complex ovarian cyst (Resolved) Endometrial thickening on ultrasound (Resolved) 1. Chest pain Etiology could be cardiac equivalent or related with her hypertensive urgency We will cycle troponins and order stress test. Based on the results of the studies, disposition will be at home or cardiology consultation continue with aspirin for now 2. Hypertensive urgency Continue with lisinopril add HCTZ 3. VTE prophylaxis: Low risk as patient is observation status at this time. Therefore VTE prophylaxis not indicated Code Visit OBSV E&M: 86623 Initial observation care L1
--- NOTE | 2018-12-23 14:20 | HP.PCM_ITS ---
Problem List (1) Chest pain Status: Acute (2) Hypertensive urgency Status: Acute History of Present Illness Date of Admission: 12/23/18 Chief Complaint: chest pain The patient is a 73 year old F who awoke with midsternal chest pain. Occurred at 4 AM today. Patient was also feeling diaphoretic. Symptoms lasted a few hours and the patient presented to the emergency room. Patient was found to be hypertensive, with a blood pressure of 247/162. In the emergency room, patient received 10 mg of IV hydralazine and her blood pressure improved to 174/99. Patient was on lisinopril as outpatient was having difficulty control blood pressure and was to be started on HCTZ. Also in the emergency room, patient received aspirin. Currently she is chest pain-free. She has not had chest pain like this previously. [] Past Medical History Medical History: Medical History (Last Updated 12/23/18 @ 14:19 by Jong Pitts DO) HTN (hypertension) I10 Allergies No Known Allergies Allergy (Verified 11/12/18 08:54) Home Medications: Ambulatory Orders Medication Instructions Recorded Lisinopril 20 mg PO DAILY 12/23/18 Surgical History: Surgical History (Last Reviewed 12/23/18 @ 14:19 by Jong Pitts DO) Cholecystectomy planned S/P laparoscopy Onset Date: ~10/02/18 Z98.890 BSO Hysteroscopy Lysis of adhesion cytologic washings S/P thyroid biopsy Z98.890 h/o gallbladder removal Psychiatric History: No pertinent psych hx Lives: Spouse/ Significant Other Smoking Status: Never smoker Tobacco Use: Non-smoker Alcohol: Occasional - *Family History Maternal Family History: Family History (Last Reviewed 12/23/18 @ 14:20 by Jong Pitts DO) Mother Diabetes Brother Diabetes Heart disease Review of Systems Constitutional: Denies: Chills, Fever, Malaise, Weakness Eyes: Denies: Blurred vision, Double vision HEENT: Denies: Head Aches, Sinus Congestion, Sinus Drainage Cardiovascular: Reports: Chest Pain. Denies: Edema Respiratory: Denies: Cough, Shortness of breath at rest, Sputum production Gastrointestinal: Denies: Abdominal Pain, Nausea, Vomiting Genitourinary: Denies: Dysuria Musculoskeletal: Denies: Joint Pain, Joint Tenderness Skin: Denies: Rash, Wounds Neurological: Denies: Numbness, Tingling, Focal weakness Psychiatric: Denies: Anxiety, Depression Hematologic/ Lymphatic: Denies: Easy Bruising, Easy Bleeding, Hx of blood clot Comment: A 10 point review of systems were negative except as mentioned in the history of present illness and the other review of systems. VTE Information - Inpt Only VTE Present on Admission: No VTE Mechan Device Prophylaxis: None VTE Pharm Prophylaxis ordered?: Yes Patient Problems: Active and Suspected Problems (Last Reviewed 11/12/18 @ 08:55 by Ludivina Munoz) Chest pain (Acute) Hypertensive urgency (Acute) - Physical Exam General: Alert, Cooperative, No apparent distress HEENT: Atraumatic, Normocephalic Oral: Moist Mucosa, No Gingival or Mucosal Lesions/ Ulcerations Neck: No Nodes, Thyroid Normal Size and Texture Lungs: Clear to auscultation, Normal air movement, No rhonchi, No wheeze Cardiovascular: Regular rate, Regular Rhythm, Normal S1, Normal S2, No murmurs Abdomen: Bowel Sounds Present, Soft, Non Tender, Non-Distended, No Hepato- splenomegaly Extremities: No edema, No Calf Tenderness Skin: No rashes, No breakdown Musculoskeletal: No Tenderness to Palpation of Joints or Extremities, No Muscle Wasting Psych/Mental Status: Normal Affect, Appropriate Vital Signs Temp Pulse Resp BP Pulse Ox 36.7 C 69 14 174/99 H 97 12/23/18 09:40 12/23/18 11:00 12/23/18 09:40 12/23/18 09:40 12/23/18 09:40 Oxygen Flow Rate (L/min) 2 Oxygen Delivery Method Room Air Weight: 74.843 kg Body Mass Index (BMI) 30.2 Intake and Output for Last 24 Hours 12/21/18 12/22/18 12/23/18 23:59 23:59 23:59 Intake Total 360 / 360 Balance 360 / 360 Laboratory Tests Past 24 Hrs 12/23/18 12/23/18 12/23/18 06:55 06:55 07:30 WBC 5.3 RBC 4.50 Hgb 13.8 Hct 40.9 MCV 90.9 MCH 30.7 MCHC 33.7 RDW 13.5 RDW Differential 44.8 H Plt Count 286 MPV 9.6 Immature Gran % (Auto) 0.400 Neut % (Auto) 59.0 Lymph % (Auto) 26.1 [place] % (Auto) 11.1 H Eos % (Auto) 3.0 Baso % (Auto) 0.4 Absolute Neuts (auto) 3.2 Absolute Lymphs (auto) 1.39 Total Counted Not Reportable Sodium Cancelled 142 Potassium Cancelled 3.7 Chloride Cancelled 112 H Carbon Dioxide Cancelled 23.0 Anion Gap Cancelled 7 BUN Cancelled 11 Creatinine Cancelled 0.83 Estim Creat Clear Calc Cancelled 48.46 Est GFR (MDRD) Af Amer Cancelled 86 Est GFR (MDRD) Non-Af Cancelled 71 BUN/Creatinine Ratio Cancelled 13.2 Glucose Cancelled 99 Calcium Cancelled 8.6 Troponin I Cancelled < 0.015 12/23/18 12/23/18 10:55 13:30 WBC RBC Hgb Hct MCV MCH MCHC RDW RDW Differential Plt Count MPV Immature Gran % (Auto) Neut % (Auto) Lymph % (Auto) [place] % (Auto) Eos % (Auto) Baso % (Auto) Absolute Neuts (auto) Absolute Lymphs (auto) Total Counted Sodium Potassium Chloride Carbon Dioxide Anion Gap BUN Creatinine Estim Creat Clear Calc Est GFR (MDRD) Af Amer Est GFR (MDRD) Non-Af BUN/Creatinine Ratio Glucose Calcium Troponin I < 0.015 Pending Clinical Impression(s) from Imaging Studies Chest X-Ray 12/23/18 07:04 IMPRESSION: No acute cardiopulmonary disease. at 0724 Reported and signed by: Tc Pennington MD Electronically Signed: Tc Pennington, at 7:23 EDT Tel , Service support , EKG reviewed and showed normal sinus rhythm with no acute changes. Assessment/Plan All Active Problems (Last Reviewed 11/12/18 @ 08:55 by Ludivina Munoz) Chest pain (Acute) Hypertensive urgency (Acute) Complex ovarian cyst (Resolved) Endometrial thickening on ultrasound (Resolved) 1. Chest pain * Etiology could be cardiac equivalent or related with her hypertensive urgency * We will cycle troponins and order stress test. Based on the results of the studies, disposition will be at home or cardiology consultation * continue with aspirin for now 2. Hypertensive urgency * Continue with lisinopril * add HCTZ 3. VTE prophylaxis: Low risk as patient is observation status at this time. Therefore VTE prophylaxis not indicated Code Visit OBSV E&M: 87506 Initial observation care L1
[2018-12-23] MEDS: Acetaminophen 325 MG Tablet 650 MG PO ×2 (15:51→21:56)
[2018-12-23] MEDS: 0.9% NaCl Peripheral Flush Adult/Peds IV (21:56)
[2018-12-24 02:33] VITALS: BP 116/72; PULSE 60; RESP 10; TEMP 36.9; O2SAT 96
[2018-12-24 03:04] VITALS: PULSE 60
[2018-12-24 05:21] VITALS: BP 155/83; PULSE 67; RESP 10; TEMP 36.7; O2SAT 95
[2018-12-24] MEDS: Aspirin E.C. 81 MG Tablet PO (05:26)
[2018-12-24] MEDS: Lisinopril 20 MG Tablet PO (05:26)
--- NOTE | 2018-12-24 05:55 | EKG12_ITS ---
Test Reason : Blood Pressure : / mmHG Vent. Rate : 060 BPM Atrial Rate : 060 BPM P-R Int : 164 ms QRS Dur : 064 ms QT Int : 446 ms P-R-T Axes : 055 -07 003 degrees QTc Int : 446 ms Normal sinus rhythm Inferior infarct , age undetermined Abnormal ECG When compared with ECG of 23-DEC-2018 10:10, MANUAL COMPARISON REQUIRED, DATA IS UNCONFIRMED Confirmed by SAMSON WOODRUFF, DAWN ([id number]), photographic editor MARY ANNE DE JESUS ([id number]) on 12/25/2018 9:40:51 AM Referred By: Confirmed By:DAWN DAVIES MD
[2018-12-24 06:21] LABS: Absolute Lymphocyte Count 0.95 X10^3/ul (0.83-4.51); Absolute Neutrophil Count 3.9 X10^3/uL (2.0-7.7); Basophil# 0.03 X10^3/uL; Basophil% 0.6 % (0-1); Eosinophil# 0.17 X10^3/uL; Eosinophils% 3.1 % (0-5); Hematocrit 44.1 % (37-47); Hemoglobin 14.5 g/dl (12.0-15.0); Lymphocyte # 0.95 X10^3/ul (4.0); Lymphocyte % 17.6 % (19-41); Mean Corp Hgb Conc 32.9 g/gl (32-36); Mean Corpuscular Hgb 29.7 pg (27.0-32.0); Mean Corpuscular Volume 90.4 fL (81-99); Mean Platelet Vol. 9.6 fl (6.2-12.0); Monocyte% 7.4 % (0-10); Neutrophil # 3.85 X10^3/uL (2.7-7.7); Neutrophil % 71.1 % (47-70); Platelet Count 283 K/mm3 (150-450); RBC Distribution Width CV 13.6 % (11.6-14.6); RBC Distribution Width SD 44.6 fl (35.1-43.9); Red Blood Count 4.88 M/mm3 (4.2-5.4); White Blood Count 5.4 K/mm3 (4.4-11.0)
[2018-12-24 06:24] LABS: POSITIVE COUNT NO; POSITIVE DIFFERENTIAL NO; POSITIVE MORPHOLOGY NO
[2018-12-24 06:31] LABS: International Normalized Ratio 1.1; Prothrombin Time (Protime)PT. 13.5 SECONDS (11.7-14.9)
[2018-12-24 06:37] LABS: Partial Thromboplast Time 25.8 Seconds (24.1-36.2)
[2018-12-24 06:46] LABS: AST(SGOT) 17 U/L (15-37); Alanine Aminotransfer ALT/SGPT 13 U/L (13-56); Albumin, Serum 3.5 g/dL (3.2-5.0); Alkaline Phosphatase 99 U/L (45-117); Anion Gap 6 (5-15); BUN 10 mg/dL (7-18); BUN/Creat Ratio 11.5 RATIO (10-20); Bilirubin, Direct 0.15 mg/dL (0.00-0.30); Chloride 107 mmol/L (98-107); Creatinine, Serum 0.87 mg/dL (0.55-1.02); EST Glomerular Filtration Rate 68 mL/min (>60); Est Glom Filt Rate - Afr Amer 82 mL/min (>60); Estimated Creatinine Clearance 46.23 ml/min; Globulin 3.5 g/dL (2.2-4.2); Glucose 103 mg/dL (74-106); Potassium 3.6 mmol/L (3.5-5.1); Sodium Level 139 mmol/L (136-145)
[2018-12-24 07:00] VITALS: PULSE 60
[2018-12-24 09:25] VITALS: BP 153/90; PULSE 73; RESP 16; TEMP 36.7; O2SAT 95
[2018-12-24] MEDS: hydroCHLOROthiazide 25 MG Tablet PO (11:24)
--- NOTE | 2018-12-24 13:31 | DCINST_ITS ---
- Discharge Diagnoses Current Active Problems: Current Active and Chronic Problems (Last Updated 12/23/18 @ 14:19 by Jong Pitts DO) Chest pain (Acute) Hypertensive urgency (Acute) You will use the following diet at home:: Cardiac Your food should be the consistency of: Regular Your liquids should be the consistency of: Regular/Thin Discharge Activity: Return to Normal Activity Call your doctor if you observe: Fever of 101 or Higher, Shortness of breath, Dizziness, Fainting spells, Chest pain Instructions: ED Chest Pain NonCardiac Allergies/Adverse Reactions: Allergies No Known Allergies Allergy (Verified 11/12/18 08:54) Medications to take at Discharge Lisinopril 20 mg PO DAILY 12/23/18 Hydrochlorothiazide [Hctz] 25 mg PO DAILY #30 tablet 12/24/18 The following prescriptions were given: Hydrochlorothiazide [Hctz] 25 mg PO DAILY #30 tablet Primary Care Physician: Jeny Irizarry MD [Primary Care Provider] - Within 1 Week Test Results: Test results from this visit will be discussed in further detail at your follow- up appointment, if applicable. Proposed Discharge Date: 12/24/18
--- NOTE | 2018-12-24 13:32 | PCM.DC.SUM ---
Discharge Date and Diagnosis - Problem List Patient Problems: Active and Suspected Problems (Last Updated 12/23/18 @ 14:19 by Jong Pitts DO) Chest pain (Acute) Hypertensive urgency (Acute) Date of Admission: 12/23/18 Date of Discharge: 12/24/18 - Primary Discharge Diagnosis Active and Suspected Problems (Last Updated 12/23/18 @ 14:19 by Jong Pitts DO) Chest pain (Acute) Hypertensive urgency (Acute) Hospital Course and Treatment Imaging Results: 12/24/18 09:00 Nuclear Stress Test - Chemical [NM] Routine Clinical Impression(s) from Imaging Studies Chest X-Ray 12/23/18 07:04 IMPRESSION: No acute cardiopulmonary disease. at 0724 Reported and signed by: Tc Pennington MD Electronically Signed: Tc Pennington, at 7:23 EDT Tel , Service support , Operations: None Procedures: Stress test Summary of Care Provided: The patient is a 73 year old F presents with chest pain the . Blood pressure was elevated at home and upon her arrival. Patient did receive labetalol in the emergency room for a blood pressure of greater than 240 systolic. Blood pressure has overall been improved and patient was continued on her 20 mg of lisinopril but also started on hydrochlorothiazide 25 mg. Stress test was negative and discussed with the patient and feel that etiology of her discomfort is likely related with her blood pressure and recommend continue with lisinopril as well as HCTZ. Patient advised to keep a record of her blood pressure and brought it to her PCP and see if further adjustments to her blood pressure medications may be necessary or not. [] Patient Problems: Active and Suspected Problems (Last Updated 12/23/18 @ 14:19 by Jong Pitts DO) Chest pain (Acute) Hypertensive urgency (Acute) - Physical Exam General: Alert, No apparent distress HEENT: Atraumatic, Normocephalic Psych/Mental Status: Normal Affect, Appropriate Vital Signs Temp Pulse Resp BP Pulse Ox 36.7 C 73 16 153/90 H 95 12/24/18 09:25 12/24/18 09:25 12/24/18 09:25 12/24/18 09:25 12/24/18 09:25 Oxygen Flow Rate (L/min) 2 Oxygen Delivery Method Room Air Weight: 74.843 kg Body Mass Index (BMI) 30.2 Intake and Output for Last 24 Hours 12/22/18 12/23/18 12/24/18 23:59 23:59 23:59 Intake Total 1300 / 1300 290 / 290 Balance 1300 / 1300 290 / 290 Laboratory Tests Past 24 Hrs 12/23/18 12/24/18 12/24/18 13:30 06:00 06:00 WBC 5.4 RBC 4.88 Hgb 14.5 Hct 44.1 MCV 90.4 MCH 29.7 MCHC 32.9 RDW 13.6 RDW Differential 44.6 H Plt Count 283 MPV 9.6 Immature Gran % (Auto) 0.200 Neut % (Auto) 71.1 H Lymph % (Auto) 17.6 L [place] % (Auto) 7.4 Eos % (Auto) 3.1 Baso % (Auto) 0.6 Absolute Neuts (auto) 3.9 Absolute Lymphs (auto) 0.95 Total Counted Not Reportable PT INR APTT Sodium 139 Potassium 3.6 Chloride 107 Carbon Dioxide 26.0 Anion Gap 6 BUN 10 Creatinine 0.87 Estim Creat Clear Calc 46.23 Est GFR (MDRD) Af Amer 82 Est GFR (MDRD) Non-Af 68 BUN/Creatinine Ratio 11.5 Glucose 103 Calcium 9.0 Total Bilirubin 0.80 Direct Bilirubin 0.15 AST 17 ALT 13 Alkaline Phosphatase 99 Troponin I < 0.015 Total Protein 7.0 Albumin 3.5 Globulin 3.5 12/24/18 06:00 WBC RBC Hgb Hct MCV MCH MCHC RDW RDW Differential Plt Count MPV Immature Gran % (Auto) Neut % (Auto) Lymph % (Auto) [place] % (Auto) Eos % (Auto) Baso % (Auto) Absolute Neuts (auto) Absolute Lymphs (auto) Total Counted PT 13.5 INR 1.1 APTT 25.8 Sodium Potassium Chloride Carbon Dioxide Anion Gap BUN Creatinine Estim Creat Clear Calc Est GFR (MDRD) Af Amer Est GFR (MDRD) Non-Af BUN/Creatinine Ratio Glucose Calcium Total Bilirubin Direct Bilirubin AST ALT Alkaline Phosphatase Troponin I Total Protein Albumin Globulin Discharge Diet: Low fat/ Low Cholesterol Discharge Activity: Return to Normal Activity Call your doctor if you observe: Fever of 101 or Higher, Shortness of breath, Dizziness, Fainting spells, Chest pain Home Medications: Medications to take at Discharge Lisinopril 20 mg PO DAILY 12/23/18 Hydrochlorothiazide [Hctz] 25 mg PO DAILY #30 tablet 12/24/18 Following Prescrptions Were Given to Patient: Hydrochlorothiazide [Hctz] 25 mg PO DAILY #30 tablet Primary Care Physician: Jeny Irizarry MD [Primary Care Provider] - Within 1 Week Patient Instructions: ED Chest Pain NonCardiac Disposition: Home Minutes spent on discharge:: 25 Patient Condition:: Good Medical Necessity - Tobacco Use Smoking Status: Never smoker Tobacco Use: Non-smoker Meaningful Use Info Meaningful Use Diagnoses (Choose all that apply): None applicable Code Visit OBSV E&M: 95438 Observation care discharge
[2018-12-24 13:45] VITALS: BP 131/92; PULSE 95; RESP 14; TEMP 36.7; O2SAT 97
--- NOTE | 2018-12-24 19:11 | STRESSREP ---
Stress Test Report Pharmacologic myocardial perfusion stress test. 73-year-old lady with a history of chest pain. Medications: Aspirin, hydrochlorothiazide, lisinopril. Stress protocol: Resting EKG demonstrates normal sinus rhythm with a rate of 77 bpm normal intervals are noted resting blood pressure 138/96 mmHg. 0.4 mg of regadenoson was infused per usual protocol followed by rapid intravenous saline flush injection continuous EKG monitoring was performed. Patient maintained sinus rhythm throughout the recording. At rest there were no ST or T wave changes noted suggest abnormal flow reserve at peak infusion nonspecific ST-T wave changes were noted with no meet the criteria for ischemia. The resting blood pressure 138/96 final blood pressure was 160/100 mmHg. Myocardial perfusion protocol. 11.0 mCi of technetium 99m sestamibi was injected at rest. 0.4 mg of regadenoson was infused per usual protocol peak infusion 33.0 mCi of technetium 99m sestamibi was injected stress images were obtained stress and rest images were reconstructed and compared in the short axis vertical long horizontal long axis. Gated images were also obtained. There was motion noted. Perfusion SPECT analysis: Review of the stress images demonstrate normal uptake of tracer noted in all areas of the myocardium. The resting images similarly demonstrate normal uptake of tracer noted in all areas of the myocardium. No areas of reversibility are noted suggest ischemia. Gated SPECT analysis: The gated ejection fraction is noted to be 89%. Conclusion: Normal pharmacologic myocardial perfusion stress test. Preserved ejection fraction.
== END 2018-12-24 13:31 | disposition home or self-care (01) ==
LOC: ED 07:50 → PCU 09:21
PROVIDERS: Emergency Provider Emergency Medicine; Family Provider Family Medicine; PCP Family Medicine
DX: R07.89 Other chest pain (principal); I16.0 Hypertensive urgency; I10 Essential (primary) hypertension; R20.2 Paresthesia of skin; Z79.899 Other long term (current) drug therapy
CPT/HCPCS: 36415; 71045; 78452; 80048; 80076; 84484; 85025; 85610; 85730; 93005; 93017; 96374; 99218; 99284; A9500; A4216; G0378; J2785

== ENCOUNTER 2019-01-16 13:00 | Outpatient (RCR) | payer MEDICARE, OTHER, SELFPAY ==
[2018-11-12 08:55] VITALS: BMI 30.5
[2018-12-23 09:37] VITALS: BMI 30.2
--- NOTE | 2018-12-26 14:31 | HP.PTEVAL_ITS ---
Patient's Visit Information GRICELDA MORSE is a 73 year old F referred to Physical Therapy by Michael Pineda DO with a diagnosis of S/P RIGHT LATERAL MALLEOLUS. Date of Evaluation: 12/26/18 Physical Therapist: Tucker Danielle, PT, Cert MDT, OCS - Visit Plan Frequency: 1-2x /Week Duration: 3 Weeks Plan: AROM.STRENGTHENING EX'S ANKLE ,PROPRIOCEPTION,GAIT TRAINING - Subjective Findings: This 73 y/o female presnets physical therapy with s/p right lateral malleolus ORIF. Patient slipped and fell Oct 4 and fracture ankle thus underwnet s/p ORIF 2018. Patient was in splint in week ,then air boot. 2weeks later removed sutures with no boot. Patient was NWB RLE 7 weeks and use kneeling walker. Then progressesd to WBAT using walker,then progressed to cane. Patient has [facility] PT 4weeks. Patient currently uses cane . Patient had x-rays -. Patient other comorbities was hospitalilzed with hysterectomy Sep 2018. Patient also develped shingles.Patient denies parathesia/tingling . Patient ankle surgery impairs ADL'S,housework tasks,. Patient condition affects QOL and function. HOME SITUATION: [place] ramp. Patient has shower chair and able to do dressing,assist with cooking and cleaning. SOCAIL: . VOCATION: retired - Pain Right Ankle Pain Intensity (Out of 10): 2 Pain Intensity Range: 10 Comment: ache - Objective POSTURE: mild foward posture,mild pes planus. GAIT: ambualtes with cane with mild stance time with decrease heelstrike to push-off. NEURO : intact. EDEMA: trimalleolar joint line 27 cm2. AROM: dorsiflexion 5 degrees,planterflexion 60 degrees ,inversion 25 degrees,eversion 3 degrees. MMT: DF 4- /5,eversion/inversion 4-/5,planterflexion 3+/5. PRIOCEPTION: impaired. FLEXABLITY: CALF MIN TIGHT - Goals Goal 1:: Independant with HEP. Goal Time Frame: 2-4 Weeks Goal 2:: Patient to normalize gait community distances. Goal Time Frame: 2-4 Weeks Goal 3:: Patient increase ankle to 4/5 to improve gait. Goal Time Frame: 2-4 Weeks Goal 4:: Patient to improve proprioception right = left to improve function. Goal Time Frame: 4-6 Weeks Goal 5:: Patient to improve LFES score by 5-10 points to improve function. - Rehabilitation Potential Physical Therapy Diagnosis: This 73 y/o female presents to physical therapy with ORIF right ankle with decrease ROM,strength,proprioception impairs gait. Rehabilitation Potential: Good - Anticipated Interventions Patient/Client Instruction: Educate patient on: Condition, Plan of Care For the Purpose of:: To decrease pain, To increase ROM, To improve muscle performance and motor function, To improve ability to perform ADL's, To improve ability of physical actions for home/community/work/leisure, To improve gait and locomotor functions, To improve health of tissue, To decrease soft tissue restriction, To increase flexibility/ROM, To improve balance Therapeutic Exercise to Include: Strength training, Postural training, F lexibilty training, Gait and locomotor training, Active ROM Comment: ANKLE For the Purpose of:: To increase ROM, To improve nutrient delivery to tissue, To increase oxygenation perfusion, To improve muscle performance and motor function, To increase tolerance to activity/condition/position, To improve ability of physical actions for home/community/work/leisure, To improve health of tissue, To decrease soft tissue restriction, To increase flexibility/ROM, To improve endurance, To improve balance, To improve safety with gait Thank you for the opportunity to evaluate your patient. For Medicare and Medicare HMO plans, please review the plan of care and approve it. It will need to be FAXED BACK to us at [phone] for Medicare purposes. For Medicare only, by signing this I certify the plan of care. Please let me know if there are questions or concerns regarding this plan of care. Physician Signature: Date:
--- NOTE | 2019-01-16 13:26 | HP.PTDCSUM ---
HP - PT D/C Summary It has been my pleasure to treat GRICELDA MORSE under orders from Michael Pineda DO, for the diagnosis of S/P RIGHT LATERAL MALLEOLUS for a total of 3 visit(s). Discharge Date: 01/16/19 Please see the following information for a summary of their discharge status. - Subjective Subjective: Doing well .. doing exercises - Pain Right Ankle Pain Intensity (Out of 10): 0 - Overall Improvement % Improvement: 90 - Objective Objective/Function: POSTURE: WFL. GAIT: NORMAL [place]. NEURO: dneis parathesia/tingling. MMT: 4/5 ankle. AROM: DF 0 degrees,PF 60 degrees,inversion 35 degrees,eversion 5 degrees. PROPRIOCEPTION: intact - Goals Goal 1:: Independant with HEP. Goal Progress: Goal Met Goal 2:: Patient to normalize gait community distances. Goal Progress: Goal Met Goal 3:: Patient increase ankle to 4/5 to improve gait. Goal Progress: Goal Met Goal 4:: Patient to improve proprioception right = left to improve function. Goal Progress: Goal Met Goal 5:: Patient to improve LFES score by 5-10 points to improve function. - Plan Plan: D/C TO HEP - D/C Information Discharge Comments: HEP If there are questions or concerns regarding this patient's physical therapy, please feel free to call me at [phone]. Thank you for the referral of this patient. Sincerely, Tucker Danielle, PT, Cert MDT, OCS
== END 2019-01-16 19:00 | disposition home or self-care (01) ==
LOC: PT 13:00
PROVIDERS: Family Provider Family Medicine; PCP Family Medicine; Referring Provider Orthopaedic Surgery; Visit Provider Orthopaedic Surgery
DX: Z98.890 Other specified postprocedural states (principal)
CPT/HCPCS: 97110; 97162

== ENCOUNTER 2019-04-15 06:50 | Day surgery (SDC) | payer MEDICARE, OTHER, SELFPAY ==
[2019-03-30 15:25] VITALS: BMI 30.2
--- NOTE | 2019-04-06 12:40 | HP_ITS ---
Intake Vital Signs 03/30/19 Body Mass Index (BMI) 30.2 03/30/19 Height 5 ft 2 in 03/30/19 Weight: 165 lb 03/30/19 Body Mass Index (BMI) 30.2 03/30/19 Blood Pressure 126/84 H 03/30/19 Blood Pressure Location Rt brachial 03/30/19 Blood Pressure Position Sitting 03/30/19 Respiratory Rate 16 Intake Visit Reasons: Abdominal pain Chief Complaint: CP Microbiological Analyst Required: No Is patient in pain?: No Allergies No Known Allergies Allergy (Verified 03/30/19 15:24) Medications Lisinopril 20 mg PO DAILY 12/23/18 [History Confirmed 03/30/19] Hydrochlorothiazide [Hctz] 25 mg PO DAILY #30 tab 12/24/18 [Rx Confirmed 03/30/19] PFSH Medical History HTN (hypertension) (Chronic) Surgical History Cholecystectomy planned (Acute) S/P laparoscopy (Acute ~10/02/18) S/P thyroid biopsy (Acute) h/o gallbladder removal (Acute) Family History Mother Diabetes Brother Diabetes Heart disease Social History (Updated 04/06/19 @ 12:40 by Radu Colvin MD) number of children: 3 current occupational status: retired current occupation: Secretarial Smoking Status: Never smoker alcohol intake: current alcohol intake frequency: 0-2 drinks per day Alcohol type: wine substance use type: does not use seatbelt use: always do you feel safe at home: Yes additional social history: Angelo Padilla HPI HPI HPI: GRICELDA MORSE, is a 74 F who presents to the office today for HPI HPI Surgical H&P: Yes HPI: GRICELDA MORSE, is a 74 F who presents to the office today for abdominal pain and a personal history of colon polyps. Patient had a colonoscopy in 2002 where she was noted to have colon polyps. She has been experiencing right lower quadrant abdominal pain in the past. She is undergone a partial hysterectomy and a right ovarian removal by Dr. Jese Posey was noted to have significant scar tissue at the time. She describes the pain is constant aching 2 out of 3 at times it has been worse. ROS General General: No weight change, appetite, fatigue, colon cancer, breast cancer or weakness HEENT HEENT: No difficulty swallowing, eye injury, eye surgery, swollen glands or hoarseness Endo Endocrine: Yes thyroid disease; no diabetes mellitus, thyroid cancer, Hair loss, heat intolerance or cold intolerance Skin Skin: No rash or changing moles Breast Breast: No left breast lump, right breast lump, nipple discharge, breast pain, abnormal mammogram, abnormal US or breast enlargement Musc Musculoskeletal: Yes arthritis; no back problems, rheumatoid arthritis, gout or joint pain Cardio Cardiovascular: Yes high blood pressure; no murmur, pacemaker, heart disease, atrial fibrillation, heart attack, heart stent, palpitations, shortness of breat with exertion or chest pain Psych Psychiatric: No depression, anxiety or hearing voices Resp Respiratory: No shortness of breath, No sleep apnea, No cough, No COPD, No asthma, No emphysema, No wheezing Gastro Gastrointestinal: Yes abdominal pain, No nausea or vomiting, No diarrhea, No constipation, No blood in stool, Yes acid reflux, Yes hemorrhoids, No ulcers, No gallbladder problem, No black,tarry stools Rolf Hematologic: No blood thinners, No blood disorders, No bleeding, No anemia, No blood clots Neuro Neurologic: No system reviewed and no additional complaints, except as docu, No as per HPI, No abnormal walking, No abnormal hearing, No abnormal movements, No abnormal speech, No behavioral changes, No burning sensations, No confusion, No seizure-like activity, No unsteadiness, No dizziness, No localized weakness, No frequent falls, No headache(s), No lack of coordination, No loss of vision, No memory loss, No numbness, No other visual disturbances, No radiating pain, No restless legs, No sensory deficit, No fainting, No tingling, No tremor(s), No weakness, No other Exam Const General: no acute distress, well developed, well hydrated Orientation: oriented to person, oriented to place, oriented to time [facility] Head: normocephalic, atraumatic Ears: external ears normal Mouth: moist mucous membranes Eyes Sclera: sclerae normal Pupils: normal by confrontation Neck Neck: no lymphadenopathy noted Neck mass: No Thyroid: thyroid normal, symmetrical Chest Chest palpation & inspection: normal inspection of the chest Breast Palpation: No nipple discharge Resp Effort & Inspection: normal respiratory effort Auscultation: clear to auscultation bilaterally Percussion: percussion normal Cardio Rate: regular rate Rhythm: regular rhythm Heart Sounds: no murmurs GI Palpation: soft, no hepatosplenomegaly, no masses, nontender Rectal Exam: other Other: Rectal exam deferred. Extrem General: normal to inspection, no clubbing, cyanosis or edema Assessment & Plan 1. Right lower quadrant abdominal pain R10.31 2. Personal history of colonic polyps Z86.010 Plan I have discussed the above with the patient. I have offered the patient colonoscopy for evaluation. I have explained the risks/benefits of the procedure and described the procedure. I have discussed the risks with the patient, including but not limited to: infection, bleeding, perforation of the GI tract requiring emergency surgery, inability to complete the procedure, injury to any internal organs, complications of anesthesia, etc. - the patient understands and agrees to proceed. I have answered all the patient's questions to the patient's satisfaction and the patient has no further questions. The patient has been given instructions for the colon cleansing preparation. The patient is also aware that if this colonoscopy is negative she may need to undergo an exploratory laparoscopy and possible appendectomy for further evaluation of her right lower quadrant abdominal pain Coding Level of Care Code Off vis,new,level 3 Diagnoses Right lower quadrant abdominal pain R10.31 ??Abdominal location: right lower quadrant Personal history of colonic polyps Z86.010 04/06/19 1240 <Electronically signed by Radu baez MD> Date _ Radu Colvin MD I have re-examined the patient. There are no clinical changes since date of exam.
[2019-04-15 07:14] VITALS: BP 151/94; PULSE 79; RESP 16; TEMP 36.9; O2SAT 100; BMI 30.1
--- NOTE | 2019-04-15 08:00 | COLBX_PTH ---
PATIENT: GRICELDA SANCHEZ LOC: EN U#:[id number] AGE/SX: 74/F ROOM: RE04/15/[address]: Dr. Radu Colvin MD : 1945 BED: DIS: 04/15/2019 SPEC #: [id number] RECD: 04/15/19 09:08 STATUS: ANY ROSA #: [id number] KIRSTEN: 04/15/19 08:[address]: Radu Colvin DEPT: SURGICAL PATHOLOGY RECD BY: Ángel Bardales ENTERED: 04/15/19 10:56 SP TYPE: COLON BX OT DR: Dr. Jeny Irizarry MD Tissues: Ascending colon Procedures: Surgery Specimen Level IV HEADER OPERATION: Colonoscopy (MAC) PRE-OP DIAGNOSIS: right lower quad pain, personal history colon polyps TISSUE SUBMITTED: Ascending colon polyp MICROSCOPIC DIAGNOSIS Ascending colon polyp, biopsy: Serrated adenoma. AM:thony 04/16/19 MICROSCOPIC DESCRIPTION Slides are reviewed. GROSS DESCRIPTION Received in fixative is one container labeled with the patient's name and designated ascending colon polyp. The specimen consists of a maldonado-pink polyp measuring 0.7 x 0.7 x 0.5 cm. The polyp is bisected. Also present in the container are two minute fragments of maldonado soft tissue measuring in aggregate 0.2 x 0.2 x 0.1 cm. The entire specimen is submitted in one cassette. / SJ:thony 04/15/19 TC:5 [facility]: [id number]
--- NOTE | 2019-04-15 08:28 | OP.ENDO_ITS ---
04/15/2019 [address] [place] [address] Re : Colonoscopy procedure for Amberly Cabrera Dear Dr. Irizarry This procedure was performed on Monday, April 15, 2019. My impressions and recommendations are as follows: Impressions : - One 20 mm polyp in the ascending colon, removed with a hot snare. Incomplete resection. Resected tissue retrieved. - Diverticulosis in the sigmoid colon. No specimens collected. - The examination was otherwise normal. Recommendations : - Discharge patient to home. - Resume previous diet. - Continue present medications. - Await pathology results. - Repeat colonoscopy in 3 months for surveillance after piecemeal polypectomy. - Return to my office in 1 week. My findings are described in the full procedure note, which is enclosed. If I can be of further assistance, please feel free to contact me at Doctor phone number(s): , Fax: [phone], Work: . Sincerely, MD Radu Leonard MD 04/15/2019 8:28:19 AM This report has been signed electronically.
[2019-04-15 08:31] VITALS: BP 107/71; BP 151/94; PULSE 60; RESP 16; TEMP 36.3; O2SAT 97
[2019-04-15 08:35] VITALS: BP 110/75; BP 151/94; PULSE 57; RESP 16; O2SAT 97
[2019-04-15 08:40] VITALS: BP 106/75; BP 151/94; PULSE 59; RESP 16; O2SAT 96
[2019-04-15 08:42] VITALS: BP 122/76; BP 151/94; PULSE 58; RESP 16; O2SAT 96
[2019-04-15 08:48] VITALS: BP 151/94
== END 2019-04-15 09:17 | disposition home or self-care (01) ==
LOC: EN 06:51 → AC 06:53
PROVIDERS: Family Provider Family Medicine; PCP Family Medicine; Referring Provider Family Medicine; Visit Provider Surgery
PROC: 0DJD8ZZ Inspection of Lower Intestinal Tract, Via Natural or Artificial Opening Endoscopic (ICD-10-PCS; CPT 45378; principal; 2019-04-15 07:55)
DX: D12.2 Benign neoplasm of ascending colon (principal); K57.30 Diverticulosis of large intestine without perforation or abscess without bleeding; Z86.010 Personal history of colon polyps; I10 Essential (primary) hypertension; M19.90 Unspecified osteoarthritis, unspecified site; K21.9 Gastro-esophageal reflux disease without esophagitis; Z78.0 Asymptomatic menopausal state; Z90.49 Acquired absence of other specified parts of digestive tract; Z79.899 Other long term (current) drug therapy
CPT/HCPCS: 45385; 88305; J7120

== ENCOUNTER 2019-05-13 13:00 | Outpatient (RCR) | payer MEDICARE, OTHER, SELFPAY ==
--- NOTE | 2019-04-28 14:13 | HP.PTEVAL ---
Patient's Visit Information GRICELDA MORSE is a 74 year old F referred to Physical Therapy by Radu Colvin MD with a diagnosis of RIGHT LOWER QUADRANT PAIN. Date of Evaluation: 04/28/19 Physical Therapist: Pavithra Bustos PT, Cert MDT - Visit Plan Frequency: 2-3x /Week Duration: 2-4 Weeks Plan: TRIAL OF POSTURE CORRECTION/STRENGTHENING, INSTRUCTION IN APPROPRIATE BODY MECHANICS AND ACTIVITY MODIFICATIONS. DLS STARTING WITH A NEUTRAL SPINE PROGRESSING ROM TOLERATED. CRISPIN LE ROM, STRETCHING AND STRENGTHENING. HEP INSTRUCTION. PATIENT AGREEABLE. - Subjective Findings: Work/Leisure: RETIRED. 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 LIFTS 25 LB GRANDDAUGHTER AND GETS DOWN ON THE FLOOR AND PLAYS WITH THEM. Disability: NO. Present symptoms: RIGHT LOWER ABDOMEN. SOME INTERMITTENT LOW BACK PAIN. SOME PAIN IN TOES THAT PATIENT RELATES TO ARTHRITIS. Present since: ABOUT A YEAR AGO. Pain Scale: WORST 8/10, LEAST 2/10. Currently: 4/10. Commenced as a result of: NO APPARENT REASON. Symptoms at onset: SAME. Worse: ? Better: ? Disturbed sleep: NO. Previous history/Previous treatment: UNREMARKABLE FOR ABDOMINAL PAIN. HAS BEEN SEING A CHIROPRACTOR FOR 20 YEARS FOR CRANIAL ADJUSTMENTS EVERY 8 WEEKS NOW. Coughing/sneezing/straining: NEGATIVE. Gait: RIGHT ANKLE FX IN OCT 2018. Difficulty initiating urinatin: NO. Accidents: FALL ON ICE OCT 2018. Unexplained weight loss: NO. Imaging: CAT SCAN IN SEP 2018 LOOKING FOR KIDNEY STONES. FOUND CYST ON OVERY. NO FURTHER IMAGAING. PMH: HTN, H/O FACE PAIN - JAW PAIN HAS GONE AWAY. Recent major surgery: HYSTERECTOMY OCT 02 2018, GALLBLADDER REMOVAL, THYROID SX. OCT 21 2018 RIGHT ANKLE ORIF. OTHER: HAD HYSTERECTOMY OCT 2018 BUT IT DID NOT CHANGE HER RIGHT LOWER QUADRANT PAIN. WAS REFERRED TO DR. COLVIN. STATES DR. COLVIN DOES NOT KNOW WHAT IT IS. STATES HE THINKS IT MIGHT BE MUSCULATURE AND STRETCHING MIGHT HELP. CHIROPRACTOR WORKED ON RIGHT THIGH AND BRUISED PATIENTS LEG ABOUT A WEEK AGO. PATIENT RELATES LOW BACK PAIN TO LIFTING/CARRYING GRANDDAUGHTER. - Objective Sitting/Standing Posture: POOR. Lordosis: REDUCED. Lateral shift: NO. Relevant shift: N/A. Active Correction of posture: NE. Other Observations: INDEP GAIT WITHOUT AD OR LOB. INDEP TRANSFERS. INDEP SIT TO STAND WITHOUT UE ASSIST. Motor deficit: CRISPIN LE'S 5/5 WITH MMT'ING EXCEPT CRISPIN HIPS 4/5. Sensory deficit: NO. ROM deficit: CRISPIN LE'S WFL. Reflexes: NT. Dural Signs: NEGATIVE CRISPIN LE'S. Lumbar mvmt loss: flex - NIL. ext - MOD. R SG - MIN. L SG - MIN. PATIENT DENIES ANY CHANGE IN RIGHT LOWER QUADRANT PAIN WITH STRENGTH OR ROM TESTING. Core strength: POOR. OTHER: TESTING TODAY IS INCONCLUSIVE. - Goals Goal 1:: DECREASE C/O RIGHT LOWER QUADRANT PAIN Goal Time Frame: 2-4 Weeks Goal 2:: IMPROVE CORE STABILITY Goal Time Frame: 2-4 Weeks Goal 3:: INSTRUCT IN PROPHYLAXIS Goal Time Frame: 2-4 Weeks - Rehabilitation Potential Rehabilitation Potential: Questionable - Anticipated Interventions Patient/Client Instruction: Educate patient on: Condition, Plan of Care, Risk Factors, Benefits of Fitness Program For the Purpose of:: To improve self management Therapeutic Exercise to Include: Strength training, Body mechanics, Postural training, Flexibilty training, Dynamic Lumbar Stabilization For the Purpose of:: To decrease pain, To improve muscle performance and motor function, To increase tolerance to activity/condition/position, To improve ability of physical actions for home/community/work/leisure Thank you for the opportunity to evaluate your patient. For Medicare and Medicare HMO plans, please review the plan of care and approve it. It will need to be FAXED BACK to us at [phone] for Medicare purposes. For Medicare only, by signing this I certify the plan of care. Please let me know if there are questions or concerns regarding this plan of care. Physician Signature: Date:
--- NOTE | 2019-05-13 17:29 | HP.PTDCSUM ---
HP - PT D/C Summary It has been my pleasure to treat GRICELDA MORSE under orders from Radu Colvin MD, for the diagnosis of RIGHT LOWER QUADRANT PAIN for a total of 2 visit(s). Discharge Date: 05/13/19 Please see the following information for a summary of their discharge status. - Subjective Subjective: PATIENT REPORTS SHE IS ABOUT THE SAME. SHE REPORTS THERE REALLY HASN'T BEEN ANY CHANGE AT ALL IN HER CONDITION AND SHE HAS NOT HAD ANY PHYSICIAN FOLLOW UP SINCE HER INITIAL PT CONSULT. FOLLOW UP WITH DR. COLVIN IS NOT SCHEDULED FOR 6 MONTHS. STATES SHE IS NOT READY FOR AN EXPLORATORY PROCEEDURE WHICH SHE THINKS IS WHAT HE WILL RECOMMEND NEXT IF SHE ISN'T BETTER. STATES THAT NOTHING SHE DOES CHANGES HER PAIN. PATIENT REPORTS SHE HAS BEEN TRYING THE HIP STRETCHING THAT DR. COLVIN RECOMMENDED BUT IT IS NOT HELPING. REPORTS THAT SHE HAS ONLY BEEN ABLE TO FOLLOW SOME OF THE RECOMMENDATIONS GIVEN IN THERAPY. SHE REPORTS SHE FEELS LIKE THE RECOMMENDATIONS WERE A WASTE. SHE STATES SHE FEELS LIKE FOR HER AGE SHE IS IN GOOD PHYSICAL SHAPE BUT SHE IS CAREFUL WITH HER ANKLE. SHE STATES SHE DIDN'T REALLY TRY TO AVOID BENDING LIFTING AND TWISTING MUCH RECOMMENDED. PATIENT REPORTS HER PAIN IS TOLERABLE RIGHT NOW AND SHE IS GOING TO LET IT GO FOR NOW. - Overall Improvement % Improvement: 0 - Objective Objective/Function: PATIENT REPORTED HIP CRAMPING WITH SUPINE CRISPIN LE DURAL STRETCHING. SHE REPORTS SHE GETS THIS AT HOME TOO AND SHE IS NOT SURE WHAT PROVOKES IT. VERBAL, VISUAL AND TACTILE CUEING NEEDED TO PERFORM ALL EX'S CORRECTLY AND IMPROVED WITH PRACTICE. PATIENT TOLERATED ALL INTERVENTIONS WELL TODAY WITH NO INCREASED PAIN UPON DEPARTURE. - Goals Goal 1:: DECREASE C/O RIGHT LOWER QUADRANT PAIN Goal Progress: Not Progressing Goal 2:: IMPROVE CORE STABILITY Goal Progress: Not Progressing Goal 3:: INSTRUCT IN PROPHYLAXIS Goal Progress: Not Progressing - Plan Plan: D/C DUE TO PATIENT NOT WANTING TO TRY MORE THERAPY AT THIS TIME. - D/C Information If there are questions or concerns regarding this patient's physical therapy, please feel free to call me at [phone]. Thank you for the referral of this patient. Sincerely, Pavithra Bustos, PT, Cert MDT
== END 2019-05-13 19:00 | disposition home or self-care (01) ==
LOC: PT 13:00
PROVIDERS: Family Provider Family Medicine; PCP Family Medicine; Referring Provider Surgery; Visit Provider Surgery
DX: R10.31 Right lower quadrant pain (principal)
CPT/HCPCS: 97162; 97530

== ENCOUNTER → 2019-07-08 11:34 | Outpatient (CLI) | payer MEDICARE, OTHER, SELFPAY ==
[2019-06-23 10:00] VITALS: BMI 30.1
--- NOTE | 2019-07-08 11:37 | BI_ITS ---
MAMMOGRAPHY - BILATERAL SCREENING REASON FOR EXAM: Female, 74 years old. Routine annual screening examination. PERTINENT HISTORY: Non-contributory. Remote left stereotactic breast biopsy. TECHNIQUE: Digital bilateral breast damián (3D mammographic acquisition) in the CC and MLO projections. 2-D mediolateral oblique (MLO) and craniocaudad (CC) views of both breasts were obtained. CAD: Full Field Digital Mammography with Computer Added Detection was performed. COMPARISON: Comparison is made with prior study dated August 10, 2014. FINDINGS: Breast Composition: The breasts are almost entirely fatty. There are no dominant masses or suspicious calcifications. A tissue clip marker is seen in the upper slightly medial aspect of the left breast. This is unchanged. No other significant abnormalities are identified. There has been no significant change since the prior study. BI/SCREEN MAMM (CAD) W/DAMIÁN BILAT IMPRESSION: Stable bilateral screening mammogram. Yearly follow-up mammogram recommended. (A) ASSESSMENT CATEGORY: BIRADS Category 2: Benign. A letter regarding these results will be sent to the patient by the facility within 30 days. Approximately 10% of breast cancers are not detected by mammography. A normal mammogram should not delay biopsy of a clinically suspicious abnormality. [id number] Electronically Signed: Giovani King, at 13:47 EDT , Service support ,
== END ==
PROVIDERS: Family Provider Family Medicine; PCP Family Medicine; Referring Provider Family Medicine; Visit Provider Family Medicine
DX: Z00.00 Encounter for general adult medical examination without abnormal findings (principal); Z12.31 Encounter for screening mammogram for malignant neoplasm of breast
CPT/HCPCS: 77063; 77067

== ENCOUNTER 2019-07-15 06:03 | Day surgery (SDC) | payer MEDICARE, OTHER, SELFPAY ==
[2019-06-23 10:00] VITALS: BMI 30.1
--- NOTE | 2019-06-25 11:09 | HP_ITS ---
Intake Vital Signs 06/23/19 Body Mass Index (BMI) 30.1 06/23/19 Blood Pressure 137/89 H 06/23/19 Blood Pressure Location Rt brachial 06/23/19 Blood Pressure Position Sitting 06/23/19 Respiratory Rate 20 H 06/23/19 Pulse Rate 67 06/23/19 Pulse Ox 99 Intake Visit Reasons: F/U FROM [facility] 04/15/19 Chief Complaint: discuss colonoscopy Roller Pneumatic Required: No Is patient in pain?: No Allergies No Known Allergies Allergy (Verified 06/23/19 09:59) Medications Lisinopril 20 mg PO DAILY 12/23/18 [History Confirmed 06/23/19] Hydrochlorothiazide [Hctz] 25 mg PO DAILY #30 tab 12/24/18 [Rx Confirmed 06/23/19] Is last menstrual period known: No Post menopausal: Yes Patient : No PFSH Medical History HTN (hypertension) (Chronic) History of colonic polyps (Acute) Surgical History Hx of colonoscopy (Acute) S/P laparoscopy (Acute ~10/02/18) h/o gallbladder removal (Acute) Cholecystectomy planned (Acute) S/P thyroid biopsy (Acute) Family History Mother Diabetes Brother Diabetes Heart disease Social History (Updated 06/25/19 @ 11:09 by Radu Colvin MD) number of children: 3 current occupational status: retired current occupation: Secretarial Smoking Status: Never smoker alcohol intake: current alcohol intake frequency: 0-2 drinks per day Alcohol type: wine substance use type: does not use seatbelt use: always do you feel safe at home: Yes additional social history: Angelo Padilla HPI HPI HPI: GRICELDA MORSE, is a 74 F who presents to the office today for HPI HPI Surgical H&P: Yes HPI: GRICELDA MORSE, is a 74 F who presents to the office today for Follow-up from a colonoscopy. She was noted to have a polyp in her ascending colon which was consistent with being a serrated adenoma. This was incompletely removed but I was able to remove the majority of it. I did not try to do anymore for fear of causing a perforation of the colon.She presents today for short-term follow-up colonoscopy. ROS General General: No weight change, appetite, fatigue, colon cancer, breast cancer or weakness HEENT HEENT: No difficulty swallowing, eye injury, eye surgery, swollen glands or hoarseness Endo Endocrine: Yes thyroid disease; no diabetes mellitus, thyroid cancer, Hair loss, heat intolerance or cold intolerance Skin Skin: No rash or changing moles Breast Breast: No left breast lump, right breast lump, nipple discharge, breast pain, abnormal mammogram, abnormal US or breast enlargement Musc Musculoskeletal: Yes arthritis; no back problems, rheumatoid arthritis, gout or joint pain Cardio Cardiovascular: Yes high blood pressure; no murmur, pacemaker, heart disease, atrial fibrillation, heart attack, heart stent, palpitations, shortness of breat with exertion or chest pain Psych Psychiatric: No depression, anxiety or hearing voices Resp Respiratory: No shortness of breath, No sleep apnea, No cough, No COPD, No asthma, No emphysema, No wheezing Gastro Gastrointestinal: Yes abdominal pain, No nausea or vomiting, No diarrhea, No constipation, No blood in stool, Yes acid reflux, Yes hemorrhoids, No ulcers, No gallbladder problem, No black,tarry stools Rolf Hematologic: No blood thinners, No blood disorders, No bleeding, No anemia, No blood clots Neuro Neurologic: No weakness Exam Const General: no acute distress, well developed, well hydrated Orientation: oriented to person, oriented to place, oriented to time [facility] Head: normocephalic, atraumatic Ears: external ears normal Mouth: moist mucous membranes Eyes Sclera: sclerae normal Pupils: normal by confrontation Neck Neck: no lymphadenopathy noted Neck mass: No Thyroid: thyroid normal, symmetrical Chest Chest palpation & inspection: normal inspection of the chest Breast Palpation: No nipple discharge Resp Effort & Inspection: normal respiratory effort Auscultation: clear to auscultation bilaterally Percussion: percussion normal Cardio Rate: regular rate Rhythm: regular rhythm Heart Sounds: no murmurs GI Palpation: soft, no hepatosplenomegaly, no masses, nontender Rectal Exam: other Other: Rectal exam deferred. Extrem General: normal to inspection, no clubbing, cyanosis or edema Assessment & Plan Problems 1. Adenomatous polyp of ascending colon D12.2 Plan I have discussed the above with the patient. I have offered the patient colonoscopy for evaluation. I have explained the risks/benefits of the procedure and described the procedure. I have discussed the risks with the patient, including but not limited to: infection, bleeding, perforation of the GI tract requiring emergency surgery, inability to complete the procedure, injury to any internal organs, complications of anesthesia, etc. - the patient understands and agrees to proceed. I have answered all the patient's questions to the patient's satisfaction and the patient has no further questions. The patient has been given instructions for the colon cleansing preparation. Coding Level of Care Code Off vis,est,level 3 Diagnoses Adenomatous polyp of ascending colon D12.2 ??Colon polyp type: adenomatous ??Colon location: ascending 06/25/19 1109 <Electronically signed by Radu baez MD> Date _ Radu Colvin MD I have re-examined the patient. There are no clinical changes since date of exam.
[2019-07-15 06:52] VITALS: BP 135/85; PULSE 62; RESP 16; TEMP 37.3; O2SAT 97; BMI 30.9
[2019-07-15] MEDS: Lactated Ringers 1,000 ML 100 ML IV (07:10)
--- NOTE | 2019-07-15 07:30 | COLBX_PTH ---
PATIENT: GRICELDA SANCHEZ LOC: EN U#:[id number] AGE/SX: 74/F ROOM: RE07/15/[address]: Dr. Radu Colvin MD : 1945 BED: DIS: 07/15/2019 SPEC #: [id number] RECD: 07/15/19 10:08 STATUS: ANY ROSA #: [id number] KIRSTEN: 07/15/19 07:[address]: Radu Colvin DEPT: SURGICAL PATHOLOGY RECD BY: Edison Ríos ENTERED: 07/15/19 10:51 SP TYPE: COLON BX OTHR DR: Dr. Jeny Irizarry MD Tissues: Cecum, NOS Procedures: Surgery Specimen Level IV HEADER OPERATION: Colonoscopy (MAC) PRE-OP DIAGNOSIS: Adenomatous polyp of ascending colon TISSUE SUBMITTED: Cecal polyp MICROSCOPIC DIAGNOSIS Cecal polyp, biopsy: Fragments of tubular adenoma. AM:thony 07/16/19 COMMENT Case has been reviewed in consultation with Dr. Wesely who concurs with the above diagnosis. IDC:LOIDA MICROSCOPIC DESCRIPTION Slides are reviewed. GROSS DESCRIPTION Received in fixative is one container labeled with the patient's name and designated cecal polyp. The specimen consists of multiple irregular fragments of maldonado soft tissue that in aggregate measure 1.5 x 0.8 x 0.3 cm. The largest fragment measures 0.6 cm in greatest dimension. The specimen is totally submitted in one cassette. / LOIDA:thony 07/15/19 TC:5 CPT: 88816
[2019-07-15 08:00] VITALS: BP 103/70; BP 135/85; PULSE 71; RESP 16; TEMP 36.4; O2SAT 95
--- NOTE | 2019-07-15 08:03 | OP.ENDO_ITS ---
07/15/2019 [address] [place] [address] Re : Colonoscopy procedure for Amberly Cabrera Dear Dr. Irizarry This procedure was performed on Monday, July 15, 2019. My impressions and recommendations are as follows: Impressions : - One 15 mm polyp in the cecum, removed with a hot snare. Resected and retrieved. Treated with argon beam coagulation. - The examination was otherwise normal. Recommendations : - Discharge patient to home. - Resume previous diet. - Continue present medications. - Await pathology results. - Repeat colonoscopy in 1 year for surveillance. - Return to my office in 1 week. My findings are described in the full procedure note, which is enclosed. If I can be of further assistance, please feel free to contact me at Doctor phone number(s): , Fax: [phone], Work: . Sincerely, MD Radu Leonard MD 07/15/2019 8:02:46 AM This report has been signed electronically.
[2019-07-15 08:05] VITALS: BP 115/73; BP 135/85; PULSE 77; RESP 16; O2SAT 94
[2019-07-15 08:10] VITALS: BP 112/85; BP 135/85; PULSE 71; RESP 16; O2SAT 97
[2019-07-15 08:15] VITALS: BP 112/83; BP 135/85; PULSE 63; RESP 16; TEMP 36.3; O2SAT 98
[2019-07-15 08:36] VITALS: BP 135/85
== END 2019-07-15 08:54 | disposition home or self-care (01) ==
LOC: EN 06:03 → AC 06:04
PROVIDERS: Family Provider Family Medicine; PCP Family Medicine; Referring Provider Family Medicine; Visit Provider Surgery
PROC: 0DJD8ZZ Inspection of Lower Intestinal Tract, Via Natural or Artificial Opening Endoscopic (ICD-10-PCS; CPT 45378; principal; 2019-07-15 07:25)
DX: D12.0 Benign neoplasm of cecum (principal); Z86.010 Personal history of colon polyps; I10 Essential (primary) hypertension; M19.90 Unspecified osteoarthritis, unspecified site; Z78.0 Asymptomatic menopausal state; Z90.49 Acquired absence of other specified parts of digestive tract; Z79.899 Other long term (current) drug therapy
CPT/HCPCS: 45385; 88305; J7120; A4216

== ENCOUNTER → 2019-09-23 10:55 | Outpatient (CLI) | payer MEDICARE, OTHER, SELFPAY ==
[2019-09-23 12:47] LABS: Anion Gap 7 (5-15); BUN 10 mg/dL (7-18); BUN/Creat Ratio 9.3 RATIO (10-20); Calcium,Total 9.4 mg/dL (8.5-10.1); Chloride 106 mmol/L (98-107); Creatinine, Serum 1.07 mg/dL (0.55-1.02); EST Glomerular Filtration Rate 53 mL/min (>60); Est Glom Filt Rate - Afr Amer 65 mL/min (>60); Glucose 101 mg/dL (74-106); Sodium Level 139 mmol/L (136-145)
== END ==
PROVIDERS: Family Provider Family Medicine; PCP Family Medicine; Referring Provider Family Medicine; Visit Provider Family Medicine
DX: I10 Essential (primary) hypertension (principal)
CPT/HCPCS: 36415; 80048

== ENCOUNTER → 2020-04-08 15:29 | Outpatient (CLI) | payer MEDICARE, OTHER, SELFPAY ==
[2020-04-08 17:54] LABS: Anion Gap 3 (5-15); BUN 12 mg/dL (7-18); BUN/Creat Ratio 12.9 RATIO (10-20); Calcium,Total 9.2 mg/dL (8.5-10.1); Chloride 107 mmol/L (98-107); Creatinine, Serum 0.93 mg/dL (0.55-1.02); EST Glomerular Filtration Rate 62 mL/min (>60); Est Glom Filt Rate - Afr Amer 76 mL/min (>60); Glucose 95 mg/dL (74-106); Potassium 4.1 mmol/L (3.5-5.1); Sodium Level 139 mmol/L (136-145)
== END ==
PROVIDERS: PCP Family Medicine; Referring Provider Family Medicine; Visit Provider Family Medicine
DX: I10 Essential (primary) hypertension (principal)
CPT/HCPCS: 36415; 80048

== ENCOUNTER → 2020-12-13 10:07 | Outpatient (CLI) | payer MEDICARE, SELFPAY ==
--- NOTE | 2020-12-13 10:13 | RAD_ITS ---
STUDY: X-RAY - RIGHT TIBIA AND FIBULA REASON FOR EXAM: Female, 75 years old. Pain after trauma TECHNIQUE: 2 view(s) of the tibia and fibula were obtained. COMPARISON: 10/13/18 FINDINGS: Normal visualized tibia. Surgical hardware noted in the distal fibula is free of complication. There is no demonstrated acute fracture. The soft tissue structures are unremarkable. RAD/Tibia & Fibula 2 Views IMPRESSION: No acute findings, surgical hardware in the distal fibula free of complication Electronically Signed: Richard Clifton MD at 10:35 EDT , Service support ,
[2020-12-13 12:31] LABS: Anion Gap 6 (5-15); BUN 8 mg/dL (7-18); BUN/Creat Ratio 8.7 RATIO (10-20); Calcium,Total 9.2 mg/dL (8.5-10.1); Chloride 105 mmol/L (98-107); Cholesterol 255 mg/dL (200); Creatinine, Serum 0.92 mg/dL (0.55-1.02); EST Glomerular Filtration Rate 63 mL/min (>60); Est Glom Filt Rate - Afr Amer 77 mL/min (>60); Glucose 95 mg/dL (74-106); High Density Lipoprotein 75 mg/dL; Potassium 3.6 mmol/L (3.5-5.1); Sodium Level 140 mmol/L (136-145); Triglycerides 105 mg/dL; Very Low Density Lipoprotein 21 mg/dL (5-40)
[2020-12-13 12:34] LABS: Microalbumin,Random Urine 6.2 mg/L (NO RANGE EST.); Microalbumin:Creatinine Ratio 6.7 mg/g CRE (<30 mg/g CRE)
== END ==
PROVIDERS: PCP Family Medicine; Referring Provider Family Medicine; Visit Provider Family Medicine
DX: S82.831A Other fracture of upper and lower end of right fibula, initial encounter for closed fracture (principal); I10 Essential (primary) hypertension
CPT/HCPCS: 36415; 73590; 80048; 80061; 82043; 82570

== ENCOUNTER → 2023-01-11 | Outpatient (CLI) | payer MEDICARE, SELFPAY ==
--- NOTE | 2023-01-11 12:02 | BI_ITS ---
MAMMOGRAPHY - BILATERAL SCREENING REASON FOR EXAM: Female, 77 years old. Routine annual screening examination. PERTINENT HISTORY: Non-contributory. History of prior left stereotactic breast biopsy. TECHNIQUE: Digital bilateral breast damián (3D mammographic acquisition) in the CC and MLO projections. 2-D mediolateral oblique (MLO) and craniocaudad (CC) views of both breasts were obtained. CAD: Full Field Digital Mammography with Computer Added Detection was performed. COMPARISON: Comparison is made with prior examination of July 08, 2019 and August 10, 2014. FINDINGS: Breast Composition: The breasts are almost entirely fatty. There are no dominant masses or suspicious calcifications. Stable small benign-appearing bilateral axillary lymph nodes. A tissue clip marker is once again seen in the central medial aspect of the left breast. No other significant abnormalities are identified. There has been no significant change since the prior study. BI/SCRN MAMM (CAD)W/DAMIÁN BILAT IMPRESSION: Stable bilateral screening mammogram. Yearly follow-up mammogram recommended. (A) ASSESSMENT CATEGORY: BIRADS Category 2: Benign. A letter regarding these results will be sent to the patient by the facility within 30 days. Approximately 10% of breast cancers are not detected by mammography. A normal mammogram should not delay biopsy of a clinically suspicious abnormality. [id number] Electronically Signed: Giovani King MD at 13:19 EDT ,
== END | disposition home or self-care (01) ==
PROVIDERS: PCP Family Medicine; Referring Provider Family Medicine; Visit Provider Family Medicine
DX: Z00.00 Encounter for general adult medical examination without abnormal findings (principal); Z12.31 Encounter for screening mammogram for malignant neoplasm of breast
CPT/HCPCS: 77063; 77067

== ENCOUNTER → 2023-05-06 | Outpatient (CLI) | payer MEDICARE, SELFPAY ==
[2023-05-06 16:20] LABS: Anion Gap 6 (5-15); BUN 14 mg/dL (7-18); BUN/Creat Ratio 15.1 RATIO (10-20); Calcium,Total 9.1 mg/dL (8.5-10.1); Chloride 108 mmol/L (98-107); Cholesterol 237 mg/dL (200); Creatinine, Serum 0.93 mg/dL (0.55-1.02); EST Glomerular Filtration Rate 62 mL/min (>60); Est Glom Filt Rate - Afr Amer 75 mL/min (>60); Glucose 94 mg/dL (74-106); High Density Lipoprotein 68 mg/dL; Potassium 3.8 mmol/L (3.5-5.1); Sodium Level 141 mmol/L (136-145); Triglycerides 80 mg/dL; Very Low Density Lipoprotein 16 mg/dL (5-40)
[2023-05-06 16:38] LABS: Microalbumin,Random Urine < 5.0 mg/L (NO RANGE EST.)
== END | disposition home or self-care (01) ==
LOC: MTLAB 11:39
PROVIDERS: PCP Family Medicine; Referring Provider Family Medicine; Visit Provider Family Medicine
DX: I10 Essential (primary) hypertension (principal)
CPT/HCPCS: 36415; 80048; 80061; 82043; 82570

== ENCOUNTER → 2023-10-22 | Outpatient (CLI) | payer MEDICARE, SELFPAY ==
--- NOTE | 2023-10-22 12:01 | EKG12_ITS ---
Test Reason : PRE OP Blood Pressure : / mmHG Vent. Rate : 060 BPM Atrial Rate : 060 BPM P-R Int : 162 ms QRS Dur : 074 ms QT Int : 418 ms P-R-T Axes : 068 009 042 degrees QTc Int : 418 ms Normal sinus rhythm Cannot rule out Septal infarct , age undetermined Abnormal ECG No change from 12/23/2018 Confirmed by Giovanny Wong ([id number]), rewrite editor KENNY BONILLA ([id number]) on 10/23/2023 8:09:18 AM Referred By: Kaylyn Brito Confirmed By:Giovanny Wong
[2023-10-22 13:00] LABS: Anion Gap 6 (5-15); BUN 12 mg/dL (7-18); BUN/Creat Ratio 11.5 RATIO (10-20); Calcium,Total 9.5 mg/dL (8.5-10.1); Chloride 109 mmol/L (98-107); Creatinine, Serum 1.04 mg/dL (0.55-1.02); EST Glomerular Filtration Rate 55 mL/min (>60); Est Glom Filt Rate - Afr Amer 66 mL/min (>60); Glucose 95 mg/dL (74-106); Potassium 3.9 mmol/L (3.5-5.1); Sodium Level 141 mmol/L (136-145)
== END | disposition home or self-care (01) ==
PROVIDERS: PCP Family Medicine; Referring Provider Physician Assistant; Visit Provider Physician Assistant
DX: Z01.810 Encounter for preprocedural cardiovascular examination (principal); I10 Essential (primary) hypertension
CPT/HCPCS: 36415; 80048; 93005

== ENCOUNTER 2023-10-30 11:07 | Emergency (ER) | payer MEDICARE, SELFPAY ==
[2023-10-30] VITALS (7 sets, daily range): BP systolic 98–187; BP diastolic 68–97; PULSE 59–67; RESP 16–18; TEMP 35.5–37.1; O2SAT 97–99; BMI 32.0
--- NOTE | 2023-10-30 11:54 | EDS_ITS ---
HPI History of Present Illness Chief Complaint: Chest Pain Informant: patient Onset/Context/Timing Onset: Hours (2) Activity at onset: rest Timing: Waxes and wanes Quality: Positive for Heaviness Location: Substernal Worsened By: Nothing Relieved By: Nothing Associated Symptoms: Positive for Lightheadedness; Negative for Nausea, Vomiting, Diaphoresis, Dyspnea, Cough, Fever, Acid Reflux or Palpitations Narrative Narrative: Patient presents with chest pain that began approximately 2 hours prior to arrival. Patient states she was getting dressed when the pain began. Patient states it has been waxing and waning. Patient describes her pain as a heaviness. Patient states pain is over the substernal area but radiates to both shoulders. Patient states nothing makes it better nothing makes it worse. Patient admits to some lightheadedness. Patient denies any nausea, vomiting, diaphoresis, shortness of breath, cough, or palpitations. CVD Risk Factors: Positive for Hypertension and Family History 1' </=55; Negative for Diabetes, Hypercholesterolemia or Smoking PE Risk Factors: Negative for Recent Travel/Surgery, Recent Immobilization, Prior DVT or PE, Cancer or OCP + Smoking + >/=35 PFSH [facility] Medical History History of colonic polyps HTN (hypertension) Tubular adenoma (~07/15/19) Home Medications lisinopril 20 mg tablet 20 mg PO DAILY 12/23/18 [History Last Taken 07/15/19] hydrochlorothiazide 25 mg tablet 25 mg PO DAILY #30 tabs 12/24/18 [Rx Last Taken Unknown] Allergy/AdvReac Type Severity Reaction Status Date / Time No Known Allergies Allergy Verified 10/30/23 11:08 Family History Mother Diabetes Brother Diabetes Heart disease Surgical History Cholecystectomy planned h/o gallbladder removal History of colonoscopy (~07/15/19) Hx of colonoscopy S/P laparoscopy (~10/02/18) S/P thyroid biopsy Social History number of children: 3 current occupational status: retired current occupation: [employer] Smoking Status: Never smoker alcohol intake: current alcohol intake frequency: 0-2 drinks per day Alcohol type: wine substance use type: does not use seatbelt use: always do you feel safe at home: Yes additional social history: [employer] ED Constitutional Constitutional ED: Denies chills or fever(s) Eyes Eyes: Denies blurry vision or change in vision ENT ENT ED: Reports rhinorrhea; Denies sore throat Cardiovascular Cardiovascular: Reports as per HPI and chest pain; Denies palpitations Respiratory/Chest Respiratory/Chest: Denies cough or dyspnea Gastrointestinal Gastrointestinal: Denies nausea or vomiting Genitourinary Genitourinary ED: Denies dysuria or hematuria Musculoskeletal Musculoskeletal: Denies back pain or neck pain Integumentary Denies abscess or rash Neurologic Neurologic: Denies headache(s) or weakness Allergic/Immunologic Allergic/Immunologic ED: Denies mouth swelling or urticaria EXAM Physical Exam Const Vital Signs: 10/30/23 11:08 10/30/23 12:35 10/30/23 12:38 Temperature 96 F L Temperature Source Temporal Pulse Rate 67 62 Respiratory Rate 16 16 Blood Pressure 187/96 H 150/97 H Blood Pressure Mean 126 114 Pulse Ox 97 99 Oxygen Delivery Method Room Air Room Air Room Air 10/30/23 13:00 10/30/23 14:00 10/30/23 15:00 Temperature 98.3 F 98.5 F 98.2 F Temperature Source Temporal Temporal Temporal Pulse Rate 65 61 59 L Respiratory Rate 18 16 18 Blood Pressure 106/68 129/76 H 98/76 Blood Pressure Mean 80 93 83 Pulse Ox 98 97 99 Oxygen Delivery Method Room Air Room Air Room Air Positive well nourished and well developed General Appearance ED: well developed and NAD HEENT Reports moist mucous membranes Neck supple and no JVD Resp normal respiratory effort and clear to auscultation bilaterally Cardio regular rate and regular rhythm GI soft to palpation, non-tender and non-distended Extremity normal to inspection General Extremety ED: Negative for edema or tenderness General Extremity: Negative for edema Neuro oriented x3, CN's II-XII intact bilaterally and no sensory deficits noted Sensorium / Orientation: awake and alert Motor Exam: strength 5/5 throughout Psych mental status grossly normal Heart Score History: Slightly/Non-Suspicious ECG: Nonspecific Repolarization Age: >/= 65 years Risk Factors: 1 or 2 Risk Factors Score: 4 MDM MDM MDM Narrative Medical decision making narrative: Differential diagnosis includes cardiac dysrhythmia, cardiac ischemia, pneumonia, pneumothorax, musculoskeletal pain, hypertensive urgency, and anxiety. EKG will be obtained to assess for cardiac dysrhythmia and cardiac ischemia. CBC will be obtained to assess for leukocytosis and anemia. Basic metabolic profile will be obtained to assess for electrolyte abnormality and renal function. High-sensitivity troponin will be obtained to assess for cardiac ischemia. 2-hour repeat high-sensitivity troponin will be obtained to assess for ongoing cardiac ischemia. Lab Data Attestation: I reviewed the patient's lab results. Lab results narrative: CBC was reviewed and was within normal limits. Basic metabolic profile was reviewed. Potassium was slightly low at 3.3. Initial high-sensitivity troponin was reviewed and was normal at 5. 2-hour repeat high-sensitivity troponin was reviewed and was normal at 5. Labs: Laboratory Results - last 24 hr 10/30/23 10/30/23 11:40 15:10 WBC 4.5 RBC 4.87 Hgb 14.5 Hct 44.5 MCV 91.4 MCH 29.8 MCHC 32.6 RDW Std Deviation 42.8 RDW Coeff of Magdy 12.8 Plt Count 297 MPV 9.5 Immature Gran % (Auto) 0.200 Neut % (Auto) 65.7 Lymph % (Auto) 22.0 Sequoyah % (Auto) 8.5 Eos % (Auto) 2.5 Baso % (Auto) 1.1 H Absolute Neuts (auto) 2.9 Absolute Lymphs (auto) 0.98 Nucleated RBC % 0 Sodium 139 Potassium 3.3 L Chloride 105 Carbon Dioxide 27.0 Anion Gap 7 BUN 12 Creatinine 1.02 Estim Creat Clear Calc 45.08 Est GFR (MDRD) Af Amer 67 Est GFR (MDRD) Non-Af 56 L BUN/Creatinine Ratio 11.8 Glucose 105 Calcium 9.1 Troponin I High Sens 5 5 Radiography Chest X-Ray - ED: 1 View, Read by ED Physician, Read by Radiologist and No Acute Disease Diagnostic Testing: Clinical Impression(s) from Imaging Studies Chest X-Ray 10/30/23 13:02 IMPRESSION: No acute abnormality is seen. Electronically Signed: Giovani King MD at 13:13 EST , Portable 1 view chest x-ray was obtained. On my independent interpretation, lung butcher are clear. There is normal cardiac silhouette. Bony thorax is normal. There is no acute process noted. Radiologist also interpreted the x- ray and agrees. EKG Initial EKG: Attestation: I personally reviewed and interpreted this EKG as follows: Interpretation: Sinus Rhythm (With occasional PVCs with a rate of 73) and Non-Specific ST Changes Comments: EKG was obtained. On my independent interpretation, it shows a sinus rhythm with occasional PVCs with a rate of 73. MT interval was normal at 160 ms. QRS interval is normal at 76 ms. QTc interval was normal at 449 ms. There is borderline left axis deviation at -18. There are nonspecific ST-T wave changes. Prior EKG tracings: available for review Prior: Unchanged (10/22/2023) Treatment and Re-Evaluation :: Patient's blood pressure was elevated on arrival. Patient was given her daily dose of lisinopril and hydrochlorothiazide. Patient was given a dose of oral potassium here. Patient was advised of her findings. Patient did have an episode where she had multiple PVCs in a row. Patient was not in ventricular tachycardia however. Patient converted spontaneously back to a normal sinus rhythm. Discharge Plan Triage Chief Complaint: Chest Pain ED Provider: Jong Durand Dx/Rx/DC Orders Clinical Impression: Chest pain, HTN (hypertension), Hypokalemia Instructions: ED Chest Pain, Uncertain Cause Prescriptions: No Action lisinopril 20 MG tablet 20 mg PO DAILY Patient Comments: TAKE 1 TABLET BY MOUTH EVERY DAY hydrochlorothiazide 25 MG tablet 25 mg PO DAILY Qty: 30 0RF Primary Care Provider: Jeny Irizarry Referrals: Jeny Irizarry MD [Primary Care Provider] - 5-7 Days Disposition Disposition: Home, Self Care
--- NOTE | 2023-10-30 12:04 | EKG12_ITS ---
Test Reason : CP Blood Pressure : / mmHG Vent. Rate : 073 BPM Atrial Rate : 073 BPM P-R Int : 160 ms QRS Dur : 076 ms QT Int : 408 ms P-R-T Axes : 025 -18 -01 degrees QTc Int : 449 ms Sinus rhythm with occasional and consecutive Premature ventricular complexes Septal infarct (cited on or before 19-SEP-2018) Inferior infarct , age undetermined Abnormal ECG Confirmed by SAMSON WOODRUFF, DAWN ([id number]), publication editor HORTENCIA NELSON ([id number]) on 10/31/2023 8:25:41 AM Referred By: FRANCK Confirmed By:DAWN DAVIES MD
[2023-10-30 12:23] LABS: Absolute Lymphocyte Count 0.98 X10^3/uL (0.83-4.51); Absolute Neutrophil Count 2.9 X10^3/uL (2.0-7.7); Basophil# 0.05 X10^3/uL; Basophil% 1.1 % (0-1); Eosinophil# 0.11 X10^3/uL; Eosinophils% 2.5 % (0-5); Hematocrit 44.5 % (37-47); Hemoglobin 14.5 g/dL (12.0-15.0); Lymphocyte # 0.98 X10^3/ul (0.83-4.51); Mean Corp Hgb Conc 32.6 g/dL (32-36); Mean Corpuscular Hgb 29.8 pg (27.0-32.0); Mean Corpuscular Volume 91.4 fL (81-99); Mean Platelet Vol. 9.5 fl (6.2-12.0); Monocyte# 0.38 X10^3/uL; Monocyte% 8.5 % (0-10); NRBC Flagged by Analyzer 0 % (0-5); Neutrophil # 2.93 X10^3/uL (2.7-7.7); Neutrophil % 65.7 % (47-70); Platelet Count 297 K/mm3 (150-450); RBC Distribution Width CV 12.8 % (11.6-14.6); RBC Distribution Width SD 42.8 fl (35.1-43.9); Red Blood Count 4.87 M/mm3 (4.2-5.4); White Blood Count 4.5 K/mm3 (4.4-11.0)
--- OUTSIDE RECORDS SUMMARY | 2023-10-30 12:24 | XMS RPT_ITS | CCD ---
Author Name Unknown Address [address] [place] [address] Organization [facility] Care Team Providers Care Soaker Soda Worker Name Role Phone Unavailable Primary Care Provider Unavailabl e Medications Current Medications Medication Drug Class(es) Dates Sig (Normalized) Sig (Original) polymyxin b 81935 unt/ml / trimethoprim 1 mg/ml ophthalmic solution (1 source) Dihydrofolate Reductase Inhibitor Antibacterial, Polymyxin-class Antibacterial Start: 10-27-2023 End: 11-03-2023 take 1 drop(s) into the eye(s) every four hours trimethoprim-hilary ymyxin (POLYTRIM) 10,000 unit- 1 mg/mL ophthalmic solution Indications: [place] eye disease of both eyes Use 1 Drop in both eyes every 4 hours for 7 days. 10 mL 0 10/27/2023 11/03/2023 Active Completed/Discontinued Medications Medication Drug Class(es) Dates Sig (Normalized) Sig (Original) acetaminophen 500 mg / HYDROcodone bitartrate 5 mg oral tablet (1 source) Opioid Agonist Start: 11-02-2003 take 1-2 tablets by mouth every six hours as needed for pain VICODIN 5/500 TABLET Take one (1) to two (2) tablet(s) by mouth every 6 hours as needed for pain 0 11/02/2003 Active Problems Active Problems Problem Classification Problem Date Documented Da te Episodic/Chronic Inflammation; infection of eye (except that caused by tuberculosis or sexually transmitteddisease) (1 source) Conjunctivitis; Translations: [Other mucopurulent conjunctivitis, bilateral] 10-27-2023 Episodic Past or Other Problems Problem Classification Problem Date Documented Da te Episodic/Chronic Other nervous system disorders (1 source) Atypical facial pain; Translations: [Atypical facial pain] Onset: 05-04-2003 01-03-2004 Episodic Results Test Name Value Interpretation Reference Range Facil ity Vital Signs Date Time Vital Sign Value Performing Clinician Faci lity 10-27-2023 14:12-0500 Body temperature 98.29 [degF] Singh Marie APRN.POLICY ANALYST Work Phone: [facility] 10-27-2023 14:12-0500 Body weight 79.38 kg Singh Marie APRN.POLICY ANALYST Work Phone: [facility] 10-27-2023 14:12-0500 Diastolic blood pressure 94 mm[Hg] Singh Marie APRN.POLICY ANALYST Work Phone: [facility] 10-27-2023 14:12-0500 Heart rate 83 /min Singh Marie APRN.POLICY ANALYST Work Phone: [facility] 10-27-2023 14:12-0500 Respiratory rate 18 /min Singh Marie APRN.POLICY ANALYST Work Phone: [facility] 10-27-2023 14:12-0500 SaO2% (BldA) [Mass fraction] 96 % Singh Marie APRN.POLICY ANALYST Work Phone: [facility] 10-27-2023 14:12-0500 Systolic blood pressure 134 mm[Hg] Singh Marie APRN.POLICY ANALYST Work Phone: [facility] Encounters Encounter Date Encounter Type Care Provider Facility Start: 10-27-2023 End: 10-27-2023 ambulatory Facility:[facility] Start: 10-27-2023 End: 10-27-2023 Patient encounter procedure Singh Marie APRN.POLICY ANALYST Work Phone: [facility] Plan of Treatment Date Care Activity Detail Author Start: 09-09-2023 Advance Directive Discussion Advance Directive Discussion [facility] Start: 09-09-2023 Depression Assessment Depression Ass essment [facility] Start: 05-10-2023 Covid-19 Vaccine ( season) Covid-19 Vaccine ( season) [facility] Start: 05-10-2023 Influenza vaccination Influenza Vacc ine (#1) [facility] Start: 07-20-2015 Pneumococcal Vaccine : 65+ (2 of 2 - PCV) Pneumococcal Vaccine: 65+ (2 of 2 - PCV) [facility] Start: 2011 Screening for osteoporosis Bone Density Screening [facility] Start: 2006 RSV Vaccine (1 - 1-d ose 60+ series) RSV Vaccine (1 - 1-dose 60+ series) [facility] Start: 01-20-1996 Shingrix Vaccine (1 of 2) Shingrix V accine (1 of 2) [facility] Start: 1991 Diabetes Screening Diabetes Screenin g [facility] Start: 1965 Urine microalbumin profile DTaP,Tdap,Td Vaccine (1 - Tdap) [facility] Start: 01-20-1964 Hepatitis C screening Hepatitis C Sc luly [facility] Immunizations Immunization Date Immunization Notes Care Provider Fa cility 06-12-2021 influenza virus vacc ine, unspecified formulation Singh Marie APRN.POLICY ANALYST Work Phone: [facility] Payers Date Payer Category Payer Medicare [employer] MEDICARE [employer] MEDICARE PPO [id number] 2022-Present [phone] [place] [address] PPO [id number] 2022 Medicare [id number] Social History Date Type Detail Facility Start: 10-27-2023 [facility] [place] Never smoked tobacco [facility] Start: 10-27-2023 Tobacco use and exposure Smoke less tobacco non-user [facility] Start: 10-27-2023 Alcohol intake Current drinke r of alcohol (finding) [facility] Start: 10-27-2023 History of Social function [facility] Start: 10-27-2023 Tobacco use panel [facility] Start: 10-27-2023 Tobacco Comment Stopped about 40 years ago-was a social smoker [facility] Start: 1945 Sex Assigned At Not on file [facility] Progress note 10-27-2023 Note Date & Type Note Facility 10-27-2023 Note HNO ID: [id number] Author: SINGH MARIE APRN.CNP Service: ? Author Type: Nurse Practitioner Type: Progress Notes Filed: 10/27/2023 14:28 Note Text: CC: Patient presents with: Eye Problem: Left eye redness, irritation, itchiness x last night HPI: Amberly Rubin is a 78 year old female who presents to the office with complaint of eye redness and irritation since this morning. Symptoms are staying the same. Associated symptoms includes eye lid debride. Denies vision changes or eye pain. Treatments tried include eye drops from home so far. with no relief of symptoms. Sick contacts: unknown. History of asthma, frequent episodes of bronchitis, chronic bronchitis, bronchiectasis or COPD: No Smoker: No Seasonal/environmental allergies: No The ROS is otherwise negative. The patient's pmh, medications, allergies, and past visits are reviewed. PHYSICAL EXAM: There were no vitals taken for this visit. General appearance: alert, cooperative, pleasant, in no acute distress Head: Normocephalic Eyes: EOM's intact, conjunctiva pink and moist, no icterus, sclera injected on left with marginal eye lid debride. Right slight erythema Ears: Right ear: External ear/canal- Normal, TM - clear with good landmarks. Left ear: External ear/canal- Normal, TM - clear with good landmarks Oropharynx:moist without lesions, No erythema, exudates or tonsillar hypertrophy. Heart: Negative. RRR without obvious murmur, gallop, or rubs. No ectopy. Lungs: clear to auscultation, without rales or wheeze, good air exchange PAST MEDICAL HISTORY Diagnosis Date CHRONIC SINUSITIS NOS Chronic mmjygmeju-gytysgpsibkf-zpaay OTC meds ESOPHAGEAL REFLUX Gastroesophageal reflux HYPERTENSION NOS 1998 On treatment MIXED HYPERLIPIDEMIA Hyperlipidemia PAST SURGICAL HISTORY Procedure Laterality Date BREAST STEREOTACTIC LEFT FINE NEEDLE ASPIRATION 10/10/06 COLONOS W/REM POLYP SNARE Polpectomy X 6 -some were precancerous type-has annual colonoscopy LIGATE FALLOPIAN TUBE 1975 Tubal ligation, laproscopically PAST SURGICAL HISTORY OF 1968 Excision of Thyroid adenoma was on Synthroid but then stopped-in 1988 REMOVAL GALLBLADDER 1987 Cholecystectomy REMOVE TONSILS/ADENOIDS,<12 Y/O Tonsil/adenoidectomy ALLERGIES Patient has no known allergies. MEDICATIONS hydroCHLOROthiazide 25 mg tablet Take 25 mg by mouth once daily. ibuprofen (ADVIL) 200 mg ORAL Tab Take one(1) to two(2) tablets every two(2) hours as needed for pain. (Patient not taking: Reported on 10/27/2023) ACTONEL 35 MG TAB Take once per week in the morning with a full glass of water, on an empty stomach, and do not take anything else by mouth or lie down for the next 30 minutes. (Patient not taking: Reported on 10/27/2023) VICODIN 5/500 TABLET Take one (1) to two (2) tablet(s) by mouth every 6 hours as needed for pain (Patient not taking: Reported on 10/27/2023) FAMILY HISTORY Problem Relation Age of Onset Stroke Sister Grand mal seizures Hypertension Mother also had scleroderma Diabetes Mother Blood Disease Father leukemia Diabetes Brother Coronary Artery Disease Brother Social History Tobacco Use Smoking status: Never Tobacco comments: Stopped about 40 years ago-was a social smoker Substance Use Topics Alcohol use: Yes Comment: couple of bottles of wine/week Drug use: No ASSESSMENT/PLAN: 1. [place] eye disease of both eyes - ICD9: 372.03, ICD10: H10.023 - POLYMYXIN B SULFATE 10,000 UNIT-TRIMETHOPRIM 1 MG/ML EYE DROPS Prescription instructions reviewed with patient as applicable. Potential red flag symptoms discussed with the patient. Reviewed appropriate action plan to take if red flag symptoms occur. Patient agreeable to treatment plan. Singh Marie APRN.[facility] History of Present illness Narrative 10-27-2023 Singh Marie APRN.[facility] - 10/27/2023 2:16 PM EST Note Date & Type Note Facility 10-27-2023 History of Presen t illness Narrative CC: Patient presents with: Eye Problem: Left eye redness, irritation, itchiness x last night HPI: Amberly Rubin is a 78 year old female who presents to the office with complaint of eye redness and irritation since this morning. Symptoms are staying the same. Associated symptoms includes eye lid debride. Denies vision changes or eye pain. Treatments tried include eye drops from home so far. with no relief of symptoms. Sick contacts: unknown. History of asthma, frequent episodes of bronchitis, chronic bronchitis, bronchiectasis or COPD: No Smoker: No Seasonal/environmental allergies: No The ROS is otherwise negative. The patient's pmh, medications, allergies, and past visits are reviewed. PHYSICAL EXAM: There were no vitals taken for this visit. General appearance: alert, cooperative, pleasant, in no acute distress Head: Normocephalic Eyes: EOM's intact, conjunctiva pink and moist, no icterus, sclera injected on left with marginal eye lid debride. Right slight erythema Ears: Right ear: External ear/canal- Normal, TM - clear with good landmarks. Left ear: External ear/canal- Normal, TM - clear with good landmarks Oropharynx:moist without lesions, No erythema, exudates or tonsillar hypertrophy. Heart: Negative. RRR without obvious murmur, gallop, or rubs. No ectopy. Lungs: clear to auscultation, without rales or wheeze, good air exchange PAST MEDICAL HISTORY Diagnosis Date CHRONIC SINUSITIS NOS Chronic xcxvhyajj-nmamqhmiyncg-vseim OTC meds ESOPHAGEAL REFLUX Gastroesophageal reflux HYPERTENSION NOS 1998 On treatment MIXED HYPERLIPIDEMIA Hyperlipidemia PAST SURGICAL HISTORY Procedure Laterality Date BREAST STEREOTACTIC LEFT FINE NEEDLE ASPIRATION 10/10/06 COLONOS W/REM POLYP SNARE Polpectomy X 6 -some were precancerous type-has annual colonoscopy LIGATE FALLOPIAN TUBE 1975 Tubal ligation, laproscopically PAST SURGICAL HISTORY OF 1968 Excision of Thyroid adenoma was on Synthroid but then stopped-in 1988 REMOVAL GALLBLADDER 1987 Cholecystectomy REMOVE TONSILS/ADENOIDS,<12 Y/O Tonsil/adenoidectomy ALLERGIES Patient has no known allergies. MEDICATIONS hydroCHLOROthiazide 25 mg tablet Take 25 mg by mouth once daily. ibuprofen (ADVIL) 200 mg ORAL Tab Take one(1) to two(2) tablets every two(2) hours as needed for pain. (Patient not taking: Reported on 10/27/2023) ACTONEL 35 MG TAB Take once per week in the morning with a full glass of water, on an empty stomach, and do not take anything else by mouth or lie down for the next 30 minutes. (Patient not taking: Reported on 10/27/2023) VICODIN 5/500 TABLET Take one (1) to two (2) tablet(s) by mouth every 6 hours as needed for pain (Patient not taking: Reported on 10/27/2023) FAMILY HISTORY Problem Relation Age of Onset Stroke Sister Grand mal seizures Hypertension Mother also had scleroderma Diabetes Mother Blood Disease Father leukemia Diabetes Brother Coronary Artery Disease Brother Social History Tobacco Use Smoking status: Never Tobacco comments: Stopped about 40 years ago-was a social smoker Substance Use Topics Alcohol use: Yes Comment: couple of bottles of wine/week Drug use: No ASSESSMENT/PLAN: 1. [place] eye disease of both eyes - ICD9: 372.03, ICD10: H10.023 - POLYMYXIN B SULFATE 10,000 UNIT-TRIMETHOPRIM 1 MG/ML EYE DROPS Prescription instructions reviewed with patient as applicable. Potential red flag symptoms discussed with the patient. Reviewed appropriate action plan to take if red flag symptoms occur. Patient agreeable to treatment plan. Singh Marie APRN.POLICY ANALYST documented in this encounter [facility] Evaluation note Note Date & Type Note Facility documented in this encounter [facility] Summary Purpose Family History No Family History Records Found Advance Directives No Advanced Directives Records Found Additional Source Comments Source Comments (unrecognize d section and content) In the event this informatio n is protected by the Federal Confidentiality of Alcohol and Drug Abuse Patient Records regulations: The Federal rules restrict any use of the information to criminally investigate or prosecute any alcohol or drug abuse patient.[facility] Reason for Visit (unrecogniz ed section and content) INFORMATION SOURCE (unrecogn ized section and content) FOR RECORDS PERTAINING TO PATIENTS WHO ARE OR HAVE BEEN ENROLLED IN A CHEMICAL DEPENDENCY/SUBSTANCEABUSE PROGRAM, SOME INFORMATION MAY BE OMITTED. This clinical summary was aggregated from multiple sources. Caution should be exercised in using it in the provision of clinical care. This summary normalizes information from multiple sources, and as a consequence, information in this document may materially change the coding, format and clinical context of patient data. In addition, data may be omitted in some cases. CLINICAL DECISIONS SHOULD BE BASED ON THE PRIMARY CLINICAL RECORDS. [facility]. provides no warranty or guarantee of the accuracy or completeness of information in this document.
[2023-10-30] MEDS: hydroCHLOROthiazide 25 MG Tablet PO (12:32)
[2023-10-30] MEDS: Aspirin 81 MG TAB.CHEW 324 MG PO (12:32)
[2023-10-30] MEDS: Lisinopril 20 MG Tablet PO (12:33)
[2023-10-30 12:47] LABS: Anion Gap 7 (5-15); BUN 12 mg/dL (7-18); BUN/Creat Ratio 11.8 RATIO (10-20); Calcium,Total 9.1 mg/dL (8.5-10.1); Chloride 105 mmol/L (98-107); Creatinine, Serum 1.02 mg/dL (0.55-1.02); EST Glomerular Filtration Rate 56 mL/min (>60); Est Glom Filt Rate - Afr Amer 67 mL/min (>60); Estimated Creatinine Clearance 45.08 ml/min; Glucose 105 mg/dL (74-106); Potassium 3.3 mmol/L (3.5-5.1); Sodium Level 139 mmol/L (136-145); Troponin-I HS (w/2H Reflex) 5 pg/mL (3.0-54.0)
--- NOTE | 2023-10-30 13:02 | RAD_ITS ---
STUDY: X-RAY CHEST REASON FOR EXAM: Female, 78 years old. Chest pain TECHNIQUE: Single AP portable view of the chest. COMPARISON: Comparison is made with prior study dated December 23, 2018. FINDINGS: EKG electrodes are seen. The lungs are clear and expanded. There is no demonstrated pleural abnormality. Normal size heart. Normal mediastinum and ashly. Normal visualized pulmonary arteries. There is atherosclerotic calcification of the aortic arch with tortuosity. There are diffuse degenerative changes of the visualized thoracic spine. Normal visualized ribs, clavicles, and shoulders. There is no demonstrated abnormality of the visualized soft tissue structures of the upper abdomen. RAD/Chest 1 View (Portable) IMPRESSION: No acute abnormality is seen. Electronically Signed: Giovani King MD at 13:13 EST ,
[2023-10-30 14:11] LABS: Reflex Troponin-HS? (from REC) Y
[2023-10-30] MEDS: Potassium Chloride Oral Tablet 20 MEQ 40 MEQ PO (15:16)
[2023-10-30 15:54] LABS: Troponin-I HS 5 pg/mL (3.0-54.0)
== END 2023-10-30 16:59 | disposition home or self-care (01) ==
PROVIDERS: Emergency Provider Emergency Medicine; PCP Family Medicine; Visit Provider Emergency Medicine
DX: R07.9 Chest pain, unspecified (principal); E87.6 Hypokalemia; I10 Essential (primary) hypertension; Z79.899 Other long term (current) drug therapy; Z90.49 Acquired absence of other specified parts of digestive tract
CPT/HCPCS: 71045; 80048; 84484; 85025; 93005; 99285; A4216

== ENCOUNTER → 2024-11-27 | Outpatient (CLI) | payer MEDICARE, SELFPAY ==
[2024-11-27 13:15] LABS: Protein, Urine (Random) < 6.0 mg/dL (0.0-12.0); Protein:Creat Ratio UNABLE TO CALCULATE mg/g CRE (0-200)
[2024-11-27 16:37] LABS: Anion Gap 13 (5-15); BUN 11 mg/dL (4-19); BUN/Creat Ratio 11.3 RATIO (10-20); Calcium,Total 9.2 mg/dL (7.6-11.0); Carbon Dioxide 24.6 mmol/L (21.0-32.0); Chloride 103 mmol/L (98-108); Cholesterol 223 mg/dL (<=200); Creatinine, Serum 0.95 mg/dL (0.70-1.20); EST Glomerular Filtration Rate 61 (>60); Glucose 88 mg/dL (70-99); High Density Lipoprotein 61 mg/dL; Low Density Lipoprotein Calc. 139 mg/dL; Potassium 3.7 mmol/L (3.3-5.1); Sodium Level 140 mmol/L (133-145); Triglycerides 114 mg/dL; Very Low Density Lipoprotein 23 mg/dL (5-40); cholesterol:hdl ratio screen 3.64
== END | disposition home or self-care (01) ==
LOC: MFPLAB 11:04
PROVIDERS: PCP Family Medicine; Referring Provider Family Medicine; Visit Provider Family Medicine
DX: I10 Essential (primary) hypertension (principal)
CPT/HCPCS: 36415; 80048; 80061; 82570; 84156

== ENCOUNTER → 2024-12-15 | Outpatient (CLI) | payer MEDICARE, SELFPAY ==
--- NOTE | 2024-12-15 15:54 | BI_ITS ---
EXAM: SCRN MAMM (CAD)W/DAMIÁN BILAT 12/15/2024 CLINICAL HISTORY: F, Age 79 y/o , SCREENING TECHNIQUE: Bilateral screening digital breast tomosynthesis with 2D and 3D images. Computer aided detection. COMPARISON: Prior exam(s) dated 01/11/2023, 07/08/2019. FINDINGS: TISSUE DENSITY: The breast tissue is almost entirely fatty. Bilateral Breast Mammographic Findings: No significant masses, calcifications or other abnormalities are identified. BI/SCRN MAMM (CAD)W/DAMIÁN BILAT IMPRESSION: Right Breast: BIRADS 1 NEGATIVE. Left Breast: BIRADS 1 NEGATIVE. OVERALL FINAL ASSESSMENT: BIRADS 1 NEGATIVE. RECOMMENDATION: Routine annual follow-up in 1 Year A letter with findings and recommendations will be mailed to the patient. Reading Location: [facility]
--- NOTE | 2024-12-15 15:54 | BD_ITS ---
PROCEDURE: DEXA BONE DENSITY STUDY 12/15/2024 REASON FOR EXAM: Screening F, age 79 y/o . TECHNIQUE: REFERENCE LINKS: ISCD Adult Positions COMPARISON: None available FINDINGS: BMD and T-SCORES Lumbar spine: 0.910 g/cm2, T-Score -0.9 L1 through L4 Left femoral neck: 0.709 g/cm2, T-Score -1.3 Femoral neck comparison data not recommended for monitoring change. Left total hip: 0.819 g/cm2, T-Score -1.0 Right femoral neck: 0.673 g/cm2, T-Score -1.6 Femoral neck comparison data not recommended for monitoring change. Right total hip: 0.794 g/cm2, T-Score -1.2 BD/Dexa Bone Density Study IMPRESSION: OSTEOPENIA. Recommend follow-up as clinically warranted. Reading Location: [facility]
== END | disposition home or self-care (01) ==
LOC: OPBD 15:52
PROVIDERS: PCP Family Medicine; Referring Provider Family Medicine; Visit Provider Family Medicine
DX: Z12.31 Encounter for screening mammogram for malignant neoplasm of breast (principal); M85.88 Other specified disorders of bone density and structure, other site
CPT/HCPCS: 77063; 77067; 77080